=== PATIENT | male | born 1965 | race Caucasian/White ===

== ENCOUNTER 2019-08-17 12:09 | Inpatient (IN) | payer OTHER ==
[~2019-08-17] VITALS: Ht 167.6 cm; Wt 81.8 kg
[2019-08-17 11:30] VITALS: BP 147/81
--- NOTE | 2019-08-17 11:45 | NUR ---
Infomed consent obtained from patient by CONCEPCION BELCHER for elective intubation. Patient intubated with 9 Lao endotracheal tube orally X 1 attempts. Patient sedated with ETOMIDATE AND SUCCINYLCHOLINE Respiratory therapy at bedside. Crash cart with emergency drugs available. Endotracheal tube inflated with 10cc's. Lungs auscultated for equality of breath sounds. Tube secured with Tube tamer at 23cm's. at level of LIP. Patient tolerated procedure WELL. Portable chest X-ray obtained and reviewed for tube placement. Patient connected to ventilator CMV mode, 400 tidal volume, 100 FIO2, 8 PEEP, and 0 pressure support. JIMMIE FARLEY
--- NOTE | 2019-08-17 12:33 | NUR ---
The assessment has been completed. FREDERICK RIGGINS Time: 1130 A year old MALE admitted to 5E under services of DOM MONSON DO, Pt. arrived via bed from ER. Chief complaint: S/S CONCERNING COVID-19. FREDERICK RIGGINS
--- NOTE | 2019-08-17 12:34 | NUR ---
DECREASED FIO2 TO 80%-+14
[2019-08-17] MEDS ORDERED: PROAIR HFA8.5 GM INH (12:54)
[2019-08-17 12:55] LABS: BILIRUBIN NEGATIVE (NEGATIVE); CLARITY SL CLOUDY (CLEAR); COLOR ORANGE (YELLOW); GLUCOSE NEGATIVE (NEGATIVE); KETONE NEGATIVE (NEGATIVE)
[2019-08-17] MEDS ORDERED: CLARITHROMYCIN500 MG PO (12:55)
[2019-08-17 12:56] LABS: BLOOD 3+ (NEGATIVE); LEUKO ESTERASE NEGATIVE (NEGATIVE); NITRITE NEGATIVE (NEGATIVE)
[2019-08-17] MEDS ORDERED: IBU800 M1 PO (12:56)
[2019-08-17] MEDS ORDERED: OXTELLAR XR300 M1 PO (12:58)
[2019-08-17 13:05] LABS: BACTERIA 2+; MUCOUS 1+; RBC 16-20 rbc/hpf (0-2)
[2019-08-17 13:17] LABS: ABG BASE EXCESS -2.4 mmol/L (-2.0-2.0)
[2019-08-17 13:19] LABS: ARTERIAL BLOOD GAS PH 7.164 (7.35-7.45)
[2019-08-17 13:31] LABS: BASO % 0.2 % (0.0-1.0); HEMATOCRIT 38.8 % (42.0-52.0); LYMPH # 0.9 10*3/uL (1.3-4.4); LYMPH % 6.6 % (27.0-41.0); MEAN CELL VOLUME 84.3 fl (80.0-94.0); MEAN CORPUSCULAR HGB 29.8 pg (27.0-31.0); MEAN CORPUSCULAR HGB CONC 35.3 g/dl (33.0-37.0); MEAN PLATELET VOLUME 12.6 fl (9.6-12.3); MONO # 0.8 10*3/uL (0.1-1.0); MONO % 6.2 % (3.0-9.0); NEUT # 11.5 10*3/uL (2.3-7.9); NEUT % 86.4 % (47.0-73.0); PLATELET COUNT AUTOMATED 178 10*3/uL (130-400); RED CELL DISTRI WIDTH 12.2 % (0-14.5); WHITE BLOOD COUNT 13.3 10*3/uL (4.8-10.8)
[2019-08-17 13:41] LABS: ALBUMIN 2.9 gm/dl (3.1-4.5); ALKALINE PHOSPHATASE 54 U/L (45-117); BUN 21 mg/dl (7-24); CHLORIDE 94 mmol/L (98-107); CREATININE 1.09 mg/dL (0.70-1.30); LDH 416 U/L (87-241); POTASSIUM 3.4 mmol/L (3.5-5.1); SGOT/AST 82 IU/L (3-35); SGPT/ALT 60 U/L (12-78); SODIUM 128 mmol/L (136-145); TOTAL PROTEIN 7.3 gm/dL (6.4-8.2)
[2019-08-17 13:42] LABS: TROPONIN I < 0.015 ng/ml (<0.045)
--- NOTE | 2019-08-17 13:48 | NUR ---
DR. SHERWOOD NOTIFIED OF CONSULT AND ABG RESULTS
--- NOTE | 2019-08-17 13:59 | NUR ---
PER DR SHERWOOD RR INCREASED TO 26.
[2019-08-17 14:00] VITALS: BP 147/66
[2019-08-17 15:51] LABS: ABG BASE EXCESS -0.4 mmol/L (-2.0-2.0); ARTERIAL BLOOD GAS PH 7.359 (7.35-7.45)
[2019-08-17 16:00] VITALS: BP 93/65
[2019-08-17 17:01] LABS: ABG BASE EXCESS 0.3 mmol/L (-2.0-2.0); ARTERIAL BLOOD GAS PH 7.41 (7.35-7.45)
[2019-08-17 18:00] VITALS: BP 109/78
[2019-08-17 20:00] VITALS: BP 96/65
--- NOTE | 2019-08-17 20:00 | NUR ---
PT IS RESTING QUIETLY AT THIS TIME.
[2019-08-17 21:55] LABS: CLARITY TURBID (CLEAR); COLOR YELLOW (YELLOW)
[2019-08-17 21:56] LABS: BILIRUBIN NEGATIVE (NEGATIVE); BLOOD 3+ (NEGATIVE); GLUCOSE NEGATIVE (NEGATIVE); KETONE NEGATIVE (NEGATIVE); LEUKO ESTERASE NEGATIVE (NEGATIVE); NITRITE NEGATIVE (NEGATIVE); UROBILINOGEN 0.2 E.U./dl (0.2-1.0)
[2019-08-17 22:00] VITALS: BP 92/68
[2019-08-17 22:05] LABS: BACTERIA 4+
[2019-08-18] VITALS (12 sets, daily range): BP systolic 96–118; BP diastolic 56–87
[2019-08-18 06:16] LABS: BASO % 0.3 % (0.0-1.0); EOS % 0.4 % (1.0-4.0); HEMATOCRIT 34.8 % (42.0-52.0); LYMPH # 0.9 10*3/uL (1.3-4.4); LYMPH % 12.1 % (27.0-41.0); MEAN CELL VOLUME 84.5 fl (80.0-94.0); MEAN CORPUSCULAR HGB 30.6 pg (27.0-31.0); MEAN CORPUSCULAR HGB CONC 36.2 g/dl (33.0-37.0); MEAN PLATELET VOLUME 11.7 fl (9.6-12.3); MONO # 0.7 10*3/uL (0.1-1.0); MONO % 9.3 % (3.0-9.0); NEUT # 5.5 10*3/uL (2.3-7.9); NEUT % 77.2 % (47.0-73.0); PLATELET COUNT AUTOMATED 147 10*3/uL (130-400); RED BLOOD COUNT 4.12 10*6/uL (4.50-5.90); RED CELL DISTRI WIDTH 12.5 % (0-14.5); WHITE BLOOD COUNT 7.2 10*3/uL (4.8-10.8)
[2019-08-18 06:30] LABS: ALBUMIN 2.5 gm/dl (3.1-4.5); ALKALINE PHOSPHATASE 54 U/L (45-117); BUN 20 mg/dl (7-24); CHLORIDE 100 mmol/L (98-107); PHOSPHOROUS 2.2 mg/dL (2.5-4.9); POTASSIUM 3.9 mmol/L (3.5-5.1); SGOT/AST 51 IU/L (3-35); SGPT/ALT 60 U/L (12-78); SODIUM 134 mmol/L (136-145); TOTAL PROTEIN 6.7 gm/dL (6.4-8.2)
[2019-08-18 06:36] LABS: THYROID STIM HORMONE (HS) 0.223 uIU/ml (0.358-4.75)
[2019-08-18 07:27] LABS: ARTERIAL BLOOD GAS PH 7.418 (7.35-7.45)
--- NOTE | 2019-08-18 07:42 | NUR ---
Shift chart check completed.
[2019-08-18 14:32] LABS: ABG BASE EXCESS 1.5 mmol/L (-2.0-2.0); ARTERIAL BLOOD GAS PH 7.287 (7.35-7.45)
--- NOTE | 2019-08-18 18:58 | NUR ---
DR. SHERWOOD NOTIFIED OF ABG RESULTS
[2019-08-19] VITALS (68 sets, daily range): BP systolic 95–145; BP diastolic 43–87
--- NOTE | 2019-08-19 02:00 | NUR ---
MEDICATED WITH IV ROCURONIUM ORDERED FOR INCREASED RESPIRATIONS/BREATHING OVER VENT.
--- NOTE | 2019-08-19 05:47 | NUR ---
24 HR chart check completed.
[2019-08-19 05:58] LABS: ALBUMIN 2.4 gm/dl (3.1-4.5); ALKALINE PHOSPHATASE 67 U/L (45-117); BUN 24 mg/dl (7-24); CHLORIDE 103 mmol/L (98-107); CREATININE 0.84 mg/dL (0.70-1.30); PHOSPHOROUS 2.4 mg/dL (2.5-4.9); POTASSIUM 4.3 mmol/L (3.5-5.1); SGOT/AST 42 IU/L (3-35); SGPT/ALT 66 U/L (12-78); SODIUM 137 mmol/L (136-145); TOTAL PROTEIN 6.8 gm/dL (6.4-8.2); TRIGLYCERIDES 176 mg/dl (<150)
[2019-08-19 07:01] LABS: HEMATOCRIT 36.5 % (42.0-52.0); RED BLOOD COUNT 4.13 10*6/uL (4.50-5.90); RED CELL DISTRI WIDTH 12.9 % (0-14.5); WHITE BLOOD COUNT 5.6 10*3/uL (4.8-10.8)
[2019-08-19 07:08] LABS: MEAN CELL VOLUME 88.4 fl (80.0-94.0); PLATELET COUNT AUTOMATED 196 10*3/uL (130-400)
--- NOTE | 2019-08-19 08:00 | NUR ---
assessment done - [facility] [place] SECURE & PATENT. DIPRIVAN & FENTANYL INFUSING. MEAGHAN PATENT FOR GREEN URINE...OGT PLACEMENT WITH AIR BOLUS THEN FEEDING AT 20cc/HR 0840 ROCURIUM GIVEN FOR CHANGES IN VENTILATOR WAVEFORMS..
[2019-08-19 08:08] LABS: ABG BASE EXCESS 3.4 mmol/L (-2.0-2.0); ARTERIAL BLOOD GAS PH 7.374 (7.35-7.45)
[2019-08-19 08:40] LABS: BURR CELLS FEW; PLATELET SUFFICIENCY NORMAL (NORMAL); POLYCHROMASIA SLIGHT; TOTAL CELLS COUNTED 100 #CELLS; TOXIC GRANULATION SLIGHT
--- NOTE | 2019-08-19 13:00 | NUR ---
ROCURIUM GIVEN FOR INCREASED TITAL VOLUMES AND RESTLESSNESS. DIPRIVAN AND FENTANYL CONTINUING... 1310 MEDS EFFECTIVE
[2019-08-19 13:53] LABS: ABG BASE EXCESS 3.3 mmol/L (-2.0-2.0); ARTERIAL BLOOD GAS PH 7.328 (7.35-7.45)
--- NOTE | 2019-08-19 15:28 | NUR ---
ROCURIUM GIVEN AFTER RT RADIAL ART LINE PLACED BY ANESTHESIA. PREPARING FOR PRONATION...
--- NOTE | 2019-08-19 18:30 | NUR ---
UNABLE TO TURN PATIENT OTHER PATIENTS REQUIRING EMERGENCY TREATMENTS/ASSESSMENTS
--- NOTE | 2019-08-19 20:19 | NUR ---
PT. REMAINS SEDATED. HEP LOCK IN SANGITA ASYMPT, ART IN LEFT RADIAL ALSO ASYMPT. RIJ MLC HAS DIPROVAN AT 50 MICS AND FENTANYL AT 15MICS INFUSING VIA PROX PORT. LUNGS DIMINISHED BILAT, PULSE OX 95% ON 45% FIO2. ABDOMEN SOFTLY DISTENDED AND NORMO. EDEMA VS OBESITY. SCD'S BILAT. HARDING DRAINING A CLEAR GREEN URINE. PT. GIVEN ORAL MOUTH CARE AND SUCTIONED FOR SCANT AMT OF WHITE MUCOUS NOTED. OGT HAS TUBE FEEDING INFUSING, NO RESIDUAL NOTED. SHAKLES TO ANKLES NOTED. SOFTS WRIST RESTRAINTS BILAT TO PREVENT ACCIDENTAL SELF-EXTUBATION. BENJAMIN VILCHIS RN
--- NOTE | 2019-08-19 22:50 | NUR ---
PT. GIVEN ZEMURON AT 2151 FOR RESTLESSNESS. IMMEDIATELY EFFECTIVE. BENJAMIN VILCHIS RN
[2019-08-20] VITALS (92 sets, daily range): BP systolic 89–173; BP diastolic 51–102
--- NOTE | 2019-08-20 02:50 | NUR ---
PT. GIVEN ZEMURON ORDERED FOR RESTLESSNESS AT 0235, IMMEDIATELY EFFECTIVE. BENJAMIN VILCHIS RN
--- NOTE | 2019-08-20 04:01 | NUR ---
No changes were made during the night to the ventilator. Plats were every 4 hours as follows 1999 0000 - 25 0400 -
[2019-08-20 04:50] LABS: ABG BASE EXCESS 6.2 mmol/L (-2.0-2.0); ARTERIAL BLOOD GAS PH 7.356 (7.35-7.45)
[2019-08-20 05:20] LABS: ALBUMIN 2.4 gm/dl (3.1-4.5); ALKALINE PHOSPHATASE 63 U/L (45-117); BUN 32 mg/dl (7-24); CHLORIDE 100 mmol/L (98-107); CREATININE 0.99 mg/dL (0.70-1.30); PHOSPHOROUS 3.6 mg/dL (2.5-4.9); POTASSIUM 4.8 mmol/L (3.5-5.1); SGOT/AST 35 IU/L (3-35); SGPT/ALT 62 U/L (12-78); SODIUM 138 mmol/L (136-145); TOTAL PROTEIN 6.8 gm/dL (6.4-8.2); TRIGLYCERIDES 210 mg/dl (<150)
[2019-08-20 06:20] LABS: HEMATOCRIT 36.3 % (42.0-52.0); MEAN CELL VOLUME 89.9 fl (80.0-94.0); MEAN CORPUSCULAR HGB 30.4 pg (27.0-31.0); MEAN CORPUSCULAR HGB CONC 33.9 g/dl (33.0-37.0); MEAN PLATELET VOLUME 11.8 fl (9.6-12.3); RED BLOOD COUNT 4.04 10*6/uL (4.50-5.90); RED CELL DISTRI WIDTH 12.9 % (0-14.5); WHITE BLOOD COUNT 12.5 10*3/uL (4.8-10.8)
[2019-08-20 06:22] LABS: PLATELET COUNT AUTOMATED 289 10*3/uL (130-400)
[2019-08-20 07:02] LABS: ATYPICAL LYMPHS 1 % (0-0); PLATELET SUFFICIENCY NORMAL (NORMAL); TOTAL CELLS COUNTED 100 #CELLS
[2019-08-20 07:03] LABS: POLYCHROMASIA SLIGHT; TOXIC GRANULATION SLIGHT
--- NOTE | 2019-08-20 08:00 | NUR ---
AM ASSESSMENT DONE. ETT SECURE AT LIP..SEE VENT SCREEN. OGT PLACEMENT CHECK WITH AIR BOLUS THEN IRRIGATED WITH FREE WATER..RIJ-MLC SECURE & PATENT WITH IV DIPRIVAN & FENTANYL INFUSING. OTHER PORTS PATENT. LEFT ART LINE PATENT, ZERO'D & CALIBRATED.. HARDING PATENT FOR CLEAR GREEN URINE. SOFT WRIST RESTRAINTS. PRION CUFFS TO BILAT ANKLES & ZIP STRIP TO RT WRIST BUT NOT SECURED TO BED
--- NOTE | 2019-08-20 09:00 | NUR ---
ROCURIUM GIVEN FOR ELVATED TIDAL VOLUMES AND BUCKING VENT.. 0905 MED EFFECTIVE
--- NOTE | 2019-08-20 11:00 | NUR ---
PATIENT PLACED IN PRONE POSITION WITH RESP THERAPY, ANESTHESIA, & NURSING STAFF PRESENT. ETT REMAINED INTACT & IN CORRECT POSITION DURING CHANGE IN POSITION...PT TOLERATED WELL. ALL LINES REMAIN PATENT.. DIPRIVAN AT 50mcg, FENTANYL @ 15mcg AND TUBE FEEDING BEING HELD CURRENTLY...
[2019-08-20 11:06] LABS: ABG BASE EXCESS 8.4 mmol/L (-2.0-2.0); ARTERIAL BLOOD GAS PH 7.37 (7.35-7.45)
--- NOTE | 2019-08-20 12:00 | NUR ---
DR SHERWOOD ROUNDED AND CASE DISCUSSED IN DEPTH WITH RESP THERAPY PRESENT...ORDERS RECEIVED & PATIENT EXAMINED PER DR SHERWOOD CXR IS SHOWING IMPROVEMENT
--- NOTE | 2019-08-20 16:00 | NUR ---
ASSESSMENT DONE - PT REMAINS IN PRONE POSITION WITH BED IN REVERSE TRENDELENBURG..HEAD FACING DOOR NOW & RIGHT ARM ELEVATED
--- NOTE | 2019-08-20 17:00 | NUR ---
STAFF RETURNED TO ROOM AND PT RETURNED TO BACK LAYING POSITION...PT TOLERATEDE WELL AND ALL LINES PATENT.. GREEN URINE
--- NOTE | 2019-08-20 19:55 | NUR ---
24 HR chart check completed.
--- NOTE | 2019-08-20 20:00 | NUR ---
BATH DONE COMPLETE ... ASSESSMENT DONE. DIPRIVAN & FENTANYL INFUSING
--- NOTE | 2019-08-20 22:46 | NUR ---
MEDICATED WITH IV ROCURONIUM ORDERED FOR AGITATION/BREATHING OVER THE VENT.
[2019-08-21] VITALS (69 sets, daily range): BP systolic 78–165; BP diastolic 49–96
--- NOTE | 2019-08-21 02:07 | NUR ---
MEDICATED WITH IV ROCURONIUM ORDERED FOR BREATHING OVER THE VENT.
[2019-08-21 02:27] LABS: ABG BASE EXCESS 10.4 mmol/L (-2.0-2.0); ARTERIAL BLOOD GAS PH 7.453 (7.35-7.45)
[2019-08-21 05:08] LABS: ALBUMIN 2.4 gm/dl (3.1-4.5); ALKALINE PHOSPHATASE 53 U/L (45-117); BUN 42 mg/dl (7-24); CHLORIDE 102 mmol/L (98-107); CREATININE 0.97 mg/dL (0.70-1.30); PHOSPHOROUS 3.5 mg/dL (2.5-4.9); POTASSIUM 4.6 mmol/L (3.5-5.1); SGOT/AST 64 IU/L (3-35); SGPT/ALT 75 U/L (12-78); SODIUM 141 mmol/L (136-145); TOTAL PROTEIN 6.1 gm/dL (6.4-8.2); TRIGLYCERIDES 273 mg/dl (<150)
[2019-08-21 06:08] LABS: HEMATOCRIT 35.1 % (42.0-52.0); MEAN CELL VOLUME 91.2 fl (80.0-94.0); MEAN CORPUSCULAR HGB 29.9 pg (27.0-31.0); MEAN CORPUSCULAR HGB CONC 32.8 g/dl (33.0-37.0); MEAN PLATELET VOLUME 11.4 fl (9.6-12.3); PLATELET COUNT AUTOMATED 342 10*3/uL (130-400); RED BLOOD COUNT 3.85 10*6/uL (4.50-5.90); RED CELL DISTRI WIDTH 12.8 % (0-14.5); WHITE BLOOD COUNT 8.9 10*3/uL (4.8-10.8)
[2019-08-21 06:20] LABS: ABG BASE EXCESS 10.9 mmol/L (-2.0-2.0); ARTERIAL BLOOD GAS PH 7.427 (7.35-7.45)
[2019-08-21 07:18] LABS: ATYPICAL LYMPHS 1 % (0-0); PLATELET SUFFICIENCY NORMAL (NORMAL); TOTAL CELLS COUNTED 100 #CELLS
--- NOTE | 2019-08-21 08:10 | NUR ---
SEDATED ON DIPRIVAN GTT AT 5O SAVANNA'S VIA RIJ MLC. ART LINE INTACT TO LEFT RADIAL AND ZEROED. LUNGS CLEAR BILATERALLY. NO EDEMA NOTED. HARDING DRAININGDARK BROWN/GREEN URINE. SCD'S INTACT TO BILATERAL LEGS. FENTANYL GTT INFUSING AT 15 SAVANNA'S. BP 82/67
--- NOTE | 2019-08-21 14:15 | NUR ---
MEDICATED WITH ROCURONIUM ORDERED FOR RESTLESSNESS.
[2019-08-21 14:47] LABS: ABG BASE EXCESS 11.6 mmol/L (-2.0-2.0); ARTERIAL BLOOD GAS PH 7.44 (7.35-7.45)
--- NOTE | 2019-08-21 16:59 | NUR ---
PATIENT GIVEN ROCC PATIENT MOVING BECOMING AGITATED PATIENT HAD LG LIQUID BM PATIENT TURNED CURRENTLY ON BACK.
[2019-08-22] VITALS (25 sets, daily range): BP systolic 102–185; BP diastolic 62–127
[2019-08-22 01:05] LABS: ABG BASE EXCESS 11.1 mmol/L (-2.0-2.0); ARTERIAL BLOOD GAS PH 7.418 (7.35-7.45)
[2019-08-22 03:53] LABS: HEMATOCRIT 41.1 % (42.0-52.0); MEAN CELL VOLUME 91.5 fl (80.0-94.0); MEAN CORPUSCULAR HGB 29.4 pg (27.0-31.0); MEAN CORPUSCULAR HGB CONC 32.1 g/dl (33.0-37.0); MEAN PLATELET VOLUME 10.3 fl (9.6-12.3); PLATELET COUNT AUTOMATED 386 10*3/uL (130-400); RED BLOOD COUNT 4.49 10*6/uL (4.50-5.90); RED CELL DISTRI WIDTH 12.6 % (0-14.5); WHITE BLOOD COUNT 10.4 10*3/uL (4.8-10.8)
[2019-08-22 04:10] LABS: ALBUMIN 2.7 gm/dl (3.1-4.5); ALKALINE PHOSPHATASE 61 U/L (45-117); BUN 41 mg/dl (7-24); CHLORIDE 100 mmol/L (98-107); CREATININE 0.92 mg/dL (0.70-1.30); SGOT/AST 62 IU/L (3-35); SGPT/ALT 88 U/L (12-78); SODIUM 143 mmol/L (136-145); TOTAL PROTEIN 6.9 gm/dL (6.4-8.2); TRIGLYCERIDES 352 mg/dl (<150)
[2019-08-22 04:53] LABS: PLATELET SUFFICIENCY NORMAL (NORMAL); TOTAL CELLS COUNTED 100 #CELLS
[2019-08-22 06:13] LABS: ABG BASE EXCESS 10.9 mmol/L (-2.0-2.0); ARTERIAL BLOOD GAS PH 7.4 (7.35-7.45)
--- NOTE | 2019-08-22 12:15 | NUR ---
PT WAS PRONED. PT IS TO HAVE HEAD SWITCHED TO OTHER SIDE AT 1430.
--- NOTE | 2019-08-22 12:30 | NUR ---
PRONING DONE ORDERED BY DR. SHERWOOD. TOLERATED FAIR. CXR ORDERED TO CONFIRM PLACEMENT
--- NOTE | 2019-08-22 14:20 | NUR ---
MEDICATED WITH ZEMURON IV PRIOR TO PRONING.
--- NOTE | 2019-08-22 15:00 | NUR ---
ZEMURON EFFECTIVE FOR SEDATION
--- NOTE | 2019-08-22 16:30 | NUR ---
PT REMAINS IN PRONE POSITION. HEAD POSITIONED TO THE LEFT AT THIS TIME.
--- NOTE | 2019-08-22 18:30 | NUR ---
PT REMAINS PRONED. HEAD POSITIONED TO THE RIGHT AT THIS TIME.
--- NOTE | 2019-08-22 19:30 | NUR ---
Pts modified swimming position and head turn done. Pts head to the right. Left arm up. Wrist restraints re applied. No comps.
--- NOTE | 2019-08-22 21:30 | NUR ---
Pts modified swimming position and head turn changed. Pt looking to the left in the prone position with right arm up. Wrist restraints reapplied. No comps.
[2019-08-22 22:06] LABS: ABG BASE EXCESS 7.5 mmol/L (-2.0-2.0); ARTERIAL BLOOD GAS PH 7.317 (7.35-7.45)
--- NOTE | 2019-08-22 22:40 | NUR ---
Pt was having trouble holding a SpO2 >90%. Pt was sitting at 85% with recruitment maneuvers. ABG pulled. PH 7.31 CO2 73 O2 59 HCO3 36 Changes were made as follows Increased rate to 30. FIO2 to 50%. Peep 16+ Pts SpO2 holding at 92%. Will get ABGs's in 2 hours.
--- NOTE | 2019-08-22 23:46 | NUR ---
INCREASED PATIENTS FENTYNAL DUE TO AGITATION AND RESTLESSNESS. PATIENT MOVING IN BED HEART RATE IS UP TO 113 INCREASED FENTYNAL TO 100MCQS .
[2019-08-23] VITALS (24 sets, daily range): BP systolic 97–187; BP diastolic 66–122
--- NOTE | 2019-08-23 | NUR ---
PATIENT HEART RATE DOWN A LITTLE BIT PATIENT RESTING MORE COMFORTABLE AT THIS TIME PATIENTS BP STABLE.
[2019-08-23 02:08] LABS: ABG BASE EXCESS 8.7 mmol/L (-2.0-2.0); ARTERIAL BLOOD GAS PH 7.372 (7.35-7.45)
[2019-08-23 05:04] LABS: HEP B CORE AB, IGM Negative (Negative); HEPATITIS B SURFACE AG Negative (Negative); HEPATITIS C VIRUS ANTIBODY <0.1 s/co (0.0-0.9)
[2019-08-23 05:26] LABS: ALBUMIN 2.8 gm/dl (3.1-4.5); ALKALINE PHOSPHATASE 57 U/L (45-117); BUN 44 mg/dl (7-24); CHLORIDE 106 mmol/L (98-107); CREATININE 0.73 mg/dL (0.70-1.30); PHOSPHOROUS 2.2 mg/dL (2.5-4.9); POTASSIUM 4.9 mmol/L (3.5-5.1); SGOT/AST 63 IU/L (3-35); SGPT/ALT 99 U/L (12-78); SODIUM 144 mmol/L (136-145); TOTAL PROTEIN 6.7 gm/dL (6.4-8.2); TRIGLYCERIDES 363 mg/dl (<150)
--- NOTE | 2019-08-23 05:59 | NUR ---
PATIENTS HEART RATE IN 120'S-130'S CALLED KINNEAR ORDERS FOR LOPRESSOR GIVEN.
[2019-08-23 06:01] LABS: HEMATOCRIT 42.1 % (42.0-52.0); MEAN CORPUSCULAR HGB 30.6 pg (27.0-31.0); MEAN CORPUSCULAR HGB CONC 32.5 g/dl (33.0-37.0); MEAN PLATELET VOLUME 10.7 fl (9.6-12.3); NUCLEATED RED BLOOD CELL 0.3 % (0.0-0.0); PLATELET COUNT AUTOMATED 300 10*3/uL (130-400); RED BLOOD COUNT 4.48 10*6/uL (4.50-5.90); RED CELL DISTRI WIDTH 12.8 % (0-14.5)
--- NOTE | 2019-08-23 06:01 | NUR ---
PATIENTS HEART RATE CURRENTLY 92 AFTER LOPRESSOR GIVEN.
[2019-08-23 06:06] LABS: ABG BASE EXCESS 6.9 mmol/L (-2.0-2.0); ARTERIAL BLOOD GAS PH 7.339 (7.35-7.45)
[2019-08-23 07:04] LABS: TOTAL CELLS COUNTED 100 #CELLS
[2019-08-23 07:05] LABS: PLATELET SUFFICIENCY NORMAL (NORMAL)
--- NOTE | 2019-08-23 08:00 | NUR ---
SEDATED ON VENT. DIPRIVAN GTT INFUSING AT 45 SAVANNA'S AND FENTANYL GTT INFUSING AT 100MIC'S. OGT INFUSING 2 RAMESH AT 20CC/HR. LUNGS CLEAR BILATERALLY WITH A FEW SCATTERED RHONCHI. HARDING DRAINING CLEAR YELLOW URINE. ART LINE INTACT TO LEFT RADIAL. RIJ MLC INTACT WITH DRESSING DRY AND INTACT. AFEBRILE.
--- NOTE | 2019-08-23 09:00 | NUR ---
DIPRIVAN GTT TITRATED DOWN TO 30 SAVANNA'A AND FENTANYL GTT TITRATED DOWN TO 75MIC'S AND THEN IN 30 MIN'S GTT WAS TITRATED DOWN TO 50 SAVANNA'S,
--- NOTE | 2019-08-23 14:00 | NUR ---
PRONED BY 6 STAFF. TOLERATED WELL.
--- NOTE | 2019-08-23 19:00 | NUR ---
MEDICATED WITH ZEMURON ORDERED FOR RESTLESSNESS AND INCREASED HEART RATE
--- NOTE | 2019-08-23 20:23 | NUR ---
SEE PI SCREEN FOR ASSESSMENT FINDINGS. PT ADEQUATELY SEDATED. MEW ART LINE BAG UP. CONTINUOUS RECTAL PROBE AT 99.9. QT 0.36. VSS. PROPOFOL 50MCG, FENTANYL 50MCG.
--- NOTE | 2019-08-23 21:11 | NUR ---
PT WAS GIVEN ROCURONIUM AT 2100 FOR MOVING HEAD/AGITATION...EFFECTIVE.
--- NOTE | 2019-08-23 22:06 | NUR ---
PT'S HEAD TURNED TO LT. ARMS REPOSITIONED.
--- NOTE | 2019-08-23 22:19 | NUR ---
PEEP WAS DECREASED BY RESP DEPT TO 16.
[2019-08-24] VITALS (25 sets, daily range): BP systolic 83–168; BP diastolic 58–104
--- NOTE | 2019-08-24 00:17 | NUR ---
PT'S PRONE HEAD PILLOW REPLACED AND PT'S HEAD AND ARMS REPOSITIONED. ROCURONIUM AT 2300 WAS EFFECTIVE FOR AGITATION. ART LINE HAD BECAME LOOSE AT HUB AND STARTED TO BLEED. SITE CLEANSED AND NEW DRESSING APPLIED.
--- NOTE | 2019-08-24 02:09 | NUR ---
NORCURONIUM GIVEN FOR PT MOVEMENT/RESTLESSNESS AT 0200 WITH HEAD TURNING AND ARM REPOSITIONING EFFECTIVE.
--- NOTE | 2019-08-24 03:15 | NUR ---
SPO2 99%. DECREASED O2 TO 45%. WILL CONTINUE TO MONITOR
--- NOTE | 2019-08-24 04:21 | NUR ---
TOLERATING TITRATION OF FIO2 TO 45% BY RESP DEPT. VSS.
--- NOTE | 2019-08-24 05:20 | NUR ---
NORCURON EFFECTIVE FOR RESTLESSNESS/MOVING ABOUT. BODY RELAXED.
[2019-08-24 05:25] LABS: ABG BASE EXCESS 6.4 mmol/L (-2.0-2.0); ARTERIAL BLOOD GAS PH 7.383 (7.35-7.45)
[2019-08-24 05:53] LABS: ALKALINE PHOSPHATASE 62 U/L (45-117); BUN 43 mg/dl (7-24); CHLORIDE 109 mmol/L (98-107); CREATININE 0.77 mg/dL (0.70-1.30); PHOSPHOROUS 1.7 mg/dL (2.5-4.9); POTASSIUM 4.4 mmol/L (3.5-5.1); SGOT/AST 64 IU/L (3-35); SGPT/ALT 103 U/L (12-78); SODIUM 145 mmol/L (136-145); TOTAL PROTEIN 6.8 gm/dL (6.4-8.2); TRIGLYCERIDES 394 mg/dl (<150)
--- NOTE | 2019-08-24 06:23 | NUR ---
PT CHANGED TO SUPINE POSITION WITH NURSE AMMUNITION STORAGE SUPERINTENDENT, RT, AND 4 OTHER STAFF MEMBERS. DONE WITHOUT DIFFICULTY. COMPLETE BATH AND BED LINEN CHANGE DONE.
[2019-08-24 06:31] LABS: HEMATOCRIT 43.6 % (42.0-52.0); MEAN CELL VOLUME 93.8 fl (80.0-94.0); MEAN CORPUSCULAR HGB 29.9 pg (27.0-31.0); MEAN CORPUSCULAR HGB CONC 31.9 g/dl (33.0-37.0); MEAN PLATELET VOLUME 10.5 fl (9.6-12.3); NUCLEATED RED BLOOD CELL 0.2 % (0.0-0.0); PLATELET COUNT AUTOMATED 360 10*3/uL (130-400); RED BLOOD COUNT 4.65 10*6/uL (4.50-5.90); RED CELL DISTRI WIDTH 12.9 % (0-14.5); WHITE BLOOD COUNT 9.5 10*3/uL (4.8-10.8)
[2019-08-24 07:07] LABS: PLATELET SUFFICIENCY NORMAL (NORMAL); TOTAL CELLS COUNTED 100 #CELLS
--- NOTE | 2019-08-24 08:00 | NUR ---
SEDATED ON VENT. REMAINS IN SOFT WRIST RESTRAINTS BILATERALLY. NSR ON HEART MONITOR. HEART RATE 90'S. BP 108/70. RECTAL TEMP 99. HARDING DRAINING CLEAR GREEN URINE. SUCTIONED FOR MODERATE AMOUNT THICK CREAM SECRETIONS. REMAINS ON DIPRIVAN GTT AT 50 SAVANNA'S AND FENTANYL GTT INFUSING AT 50 SAVANNA'S.
--- NOTE | 2019-08-24 09:00 | NUR ---
MEDICATED WITH ZEMURON ORDERED FOR RESTLESSNESS.
--- NOTE | 2019-08-24 10:00 | NUR ---
DR. SHERWOOD HERE TO SEE PATIENT
--- NOTE | 2019-08-24 17:29 | NUR ---
SPOKE WITH DR. SHERWOOD REGARDING HEART RATE 130'S AND BP 170/100. ORDERS RECEIVED TO RESTART DIPRIVAN AND CONTINUE WITH FENTANYL AND KETAMINE GTTS.
--- NOTE | 2019-08-24 19:23 | NUR ---
13:15 FIO2 DECREASED TO 35% SPO2 100%
--- NOTE | 2019-08-24 19:24 | NUR ---
16:10 FIO2 DECREASED TO 35% SPO2 96%
[2019-08-24 19:56] LABS: ABG BASE EXCESS 8.5 mmol/L (-2.0-2.0); ARTERIAL BLOOD GAS PH 7.41 (7.35-7.45)
--- NOTE | 2019-08-24 23:05 | NUR ---
TEMP 100.6 PER CONTINUOUS RECTAL PROBE. HR UPPER 130'S. PT HAD BEEN MOVING AROUND AND WAS GIVEN ROCURONIUM AT 2240 AND THAT WAS EFFECTIVE...BUT HR UPPER 130'S. MEDICATED WITH TYLENOL FOR FEVER.
[2019-08-25] VITALS (26 sets, daily range): BP systolic 93–172; BP diastolic 61–97
[2019-08-25 00:04] LABS: TB1 Ag VALUE 0.07 IU/mL (.)
--- NOTE | 2019-08-25 02:14 | NUR ---
RECURONIUM FOR PT'S PULLING UP AT RESTRAINTS EFFECTIVE....BODY RELAXED. TEMP DOWN TO 100.2 AND HR DOWN TO 120'S.
[2019-08-25 05:08] LABS: ALKALINE PHOSPHATASE 60 U/L (45-117); BUN 43 mg/dl (7-24); CHLORIDE 109 mmol/L (98-107); CREATININE 0.93 mg/dL (0.70-1.30); PHOSPHOROUS 1.9 mg/dL (2.5-4.9); SGOT/AST 72 IU/L (3-35); SGPT/ALT 109 U/L (12-78); SODIUM 148 mmol/L (136-145); TOTAL PROTEIN 6.5 gm/dL (6.4-8.2)
--- NOTE | 2019-08-25 05:49 | NUR ---
ROCURONIUM GIVEN AT 0530 FOR PT PULLING UP AT RESTRAINTS AND SHAKING HEAD SIDE TO SIDE, LIFTING SHOULDERS. EFFECTIVE. BODY RELAXED.
[2019-08-25 05:54] LABS: ARTERIAL BLOOD GAS PH 7.423 (7.35-7.45)
--- NOTE | 2019-08-25 06:02 | NUR ---
PTS PF RATIO IS CURRENTLY 294
[2019-08-25 06:12] LABS: HEMATOCRIT 42.8 % (42.0-52.0); MEAN CELL VOLUME 94.9 fl (80.0-94.0); MEAN CORPUSCULAR HGB 30.2 pg (27.0-31.0); MEAN CORPUSCULAR HGB CONC 31.8 g/dl (33.0-37.0); MEAN PLATELET VOLUME 10.7 fl (9.6-12.3); PLATELET COUNT AUTOMATED 340 10*3/uL (130-400); RED BLOOD COUNT 4.51 10*6/uL (4.50-5.90); WHITE BLOOD COUNT 10.2 10*3/uL (4.8-10.8)
--- NOTE | 2019-08-25 06:28 | NUR ---
TUBE FEEDINGS TO 40CC/HR. HOB ELEVATED. HEELS OFF OF BED. ARMS POSITIONED AND PROPPED WITH PILLOWS.
[2019-08-25 07:31] LABS: PLATELET SUFFICIENCY NORMAL (NORMAL); POLYCHROMASIA SLIGHT; TOTAL CELLS COUNTED 100 #CELLS
--- NOTE | 2019-08-25 09:07 | NUR ---
AM ASSESSMENT DONE - PATIENT ARUSED WHEN MEDICATIONS STOPPED FOR SEDATION VACATION BUT WAS UNABLE TO FOLLOW COMMANDS & DID NOT SHAKE HEAD APPROPRIATELY..DIPRIVAN AT 35mcg / FENTANYL @ 75mcg / KETAMINE AT 6mcg VIA RIJ-MLC...SANGITA IV REMOVED AND CLEAN DRESSING APPLIED. OGT PLACEMENT CHECKED WITH AIR BOLUS THEN IRRIGATED WITH FREE WATER. NEUTRAPHOS GIVEN EARLY FOR LOW LEVEL & WILL DISCUSS W/ DR SHERWOOD..TUBE FEEDING AT 40 CC/HR..LEFT RADIAL ART LINE ZERO'D & CALIBRATED WITH GOOD BLOOD RETURN...HARDING DRAINING LIGHT GREEN/KEEGAN URINE.. FECAL MGT TUBE IN PLACE FOR BROWN STOOL..TEMP REMAINS 100.4 RECTAL.. POSITIONED ONTO LEFT.. O2 DECREASED TO 30% THIS AM AFTER O2 ON ABG 103.. PULSE OX INITAILLY MAINTAINED BUT THEN DROPPED TO 86% WITH GOOD WAVE FORM.. DESPITE CHANGES OF FINGERS, REPOSITIONING, SUCTIONING IT ONLY CAME UP TO 88%.WITH 100% O2 FOR 2 MIN PULSE OX CAME UP TO 95% BUT WITHIN 2 MIN OF RETURNING TO 30% SATS WERE AT 90%..FiO2 INCREASED TO 35%.. MAINTAINED 90% BUT SLOWLY CAME UP TO 94%...
[2019-08-25 11:29] LABS: ARTERIAL BLOOD GAS PH 7.42 (7.35-7.45)
--- NOTE | 2019-08-25 20:04 | NUR ---
TEMP 101.3 TO 101.5. MEDICATED WITH TYLENOL ORDERED. REPOSITIONED AND PILLOWS REMOVED TO ALLOW FOR PT COMFORT. NEW ART TUBING HUNG AND HEPARIN FLUSH BAG. OTHER THAN ELEVATED TEMP, VSS. ORAL CARE DONE. AFB SPUTUM SPECIMEN OBTAINED AND SENT ORDERED. TUBE FEEDINGS CONTINUE AT 50CC/HR. HOB ELEVATED.
--- NOTE | 2019-08-25 22:18 | NUR ---
TYLENOL EFFECTIVE...TEMP DOWN TO 100.6.
[2019-08-26] VITALS (24 sets, daily range): BP systolic 85–158; BP diastolic 60–92
--- NOTE | 2019-08-26 01:22 | NUR ---
COMPLETE BATH AND BED LINEN CHANGE DONE. PT AWAKE, LOOKS AT ME. SQUEEZES MY HAND VERY HARD WHEN I EXPLAINED PT CONDITION/PLAN OF CARE.
--- NOTE | 2019-08-26 04:37 | NUR ---
ZEMURON GIVEN AT 0430 FOR PT AGITATION, MOVING, PULLING UP AT RESTRAINTS AND LIFTING AND THRASHING HEAD SIDE TO SIDE....EFFECTIVE.
[2019-08-26 05:16] LABS: ABG BASE EXCESS 5.9 mmol/L (-2.0-2.0); ARTERIAL BLOOD GAS PH 7.354 (7.35-7.45)
[2019-08-26 05:54] LABS: ALKALINE PHOSPHATASE 60 U/L (45-117); BUN 37 mg/dl (7-24); CHLORIDE 117 mmol/L (98-107); CREATININE 0.79 mg/dL (0.70-1.30); PHOSPHOROUS 2.9 mg/dL (2.5-4.9); POTASSIUM 3.9 mmol/L (3.5-5.1); SGOT/AST 72 IU/L (3-35); SGPT/ALT 97 U/L (12-78); SODIUM 149 mmol/L (136-145); TOTAL PROTEIN 6.3 gm/dL (6.4-8.2); TRIGLYCERIDES 362 mg/dl (<150)
[2019-08-26 06:11] LABS: HEMATOCRIT 41.7 % (42.0-52.0); MEAN CELL VOLUME 95.6 fl (80.0-94.0); MEAN CORPUSCULAR HGB 30.3 pg (27.0-31.0); MEAN CORPUSCULAR HGB CONC 31.7 g/dl (33.0-37.0); MEAN PLATELET VOLUME 10.4 fl (9.6-12.3); PLATELET COUNT AUTOMATED 264 10*3/uL (130-400); RED BLOOD COUNT 4.36 10*6/uL (4.50-5.90); RED CELL DISTRI WIDTH 13.2 % (0-14.5); WHITE BLOOD COUNT 9.9 10*3/uL (4.8-10.8)
--- NOTE | 2019-08-26 06:20 | NUR ---
AFB SPUTUM COLLECTED AND SENT ORDERED. PT AWAKE AND LOOKING AT ME AND HIS SURROUNDINGS. FREQUENT EXPLANATIONS CONTINUE. VSS.
--- NOTE | 2019-08-26 07:00 | NUR ---
Shift chart check completed.
[2019-08-26 07:10] LABS: PLATELET SUFFICIENCY NORMAL (NORMAL); TOTAL CELLS COUNTED 100 #CELLS; TOXIC GRANULATION SLIGHT
--- NOTE | 2019-08-26 08:00 | NUR ---
AM ASSESSMENT DONE - ETT SECURE W/ 26 @ OUTER LIP...OGT PLACEMENT CONFIRMED W/ AIR BOLUS THEN IRRIGATED WITH FREE WATER & FEEDINGS INFUSING .. RIJ-MLC SECURE W/ ALL PORTS PATENT. DIPRIVAN INFUSING AT 35mcg & FENTANYL @ 35mcg...LEFT ARM ARTLINE SECURE & PATENT. ART ZERO'D & CALIBRATED W/ GOOD HEMODYNAIC RESPONSE..HARDING PATENT FOR CLOUDY URINE, RECTAL HARDING INTACT WITH BROWN LOOSE STOOL...
--- NOTE | 2019-08-26 11:00 | NUR ---
DR SHERWOOD HERE AND CASES REVIED & PATIENT SEEN. ID CALLED IN AND CASES DISCUSSED. MEDS ADJUSTED PER INFECTIOUS DISEASE.. FREE WATER INCREASED TO ASSIST WITH NA LEVEL...DR HERRERA ROUNDED ALSO
[2019-08-26 11:42] LABS: ABG BASE EXCESS 5.1 mmol/L (-2.0-2.0); ARTERIAL BLOOD GAS PH 7.42 (7.35-7.45)
[2019-08-26 12:05] LABS: ACID FAST SPEC PROCESSING Concentration (.)
--- NOTE | 2019-08-26 12:55 | NUR ---
HALDOL GIVEN FOR RESTLESSNESS. RIJ DRESSING CHANGED. GOOD OUTPUT FROM LASIX..
--- NOTE | 2019-08-26 14:00 | NUR ---
CALMER BUT STILL RESTLESS AT TIMES
--- NOTE | 2019-08-26 16:57 | NUR ---
HALDOL GIVEN FOR RESTLESSNESS AFTER TURNING
--- NOTE | 2019-08-26 19:26 | NUR ---
DR MACDONALD CALLED IN AND VITALS REVIEWED...REQUESTED TO STOP HALDOL & DR SHERWOOD CALLED AND HE APPROVED. CONTINUE FENTANYL & DIPIRIVAN FOR SEDATION
--- NOTE | 2019-08-26 20:00 | NUR ---
PT RESTING IN BED AWAKE AND AGITATED. ENDOTUBE PATENT, TIES SECURE. VENT SETTINGS VERIFIED AND FUNCTIONING WITHOUT DIFFICULTY. OGT PATENT, PLACEMENT VERUIFIED VIA AIR BOLUS AND TF AKIL WELL. RIGHT IJ MLC PATENT, DRESSING DRY AND INTACT. LEFT ART LINE PATENT, DRESSING DRY AND INTACT. HARDING PATENT FOR CLEAR KEEGAN URINE. DIPRIVAN AND FENTANYL INFUSING ORDERED FOR SEDATION. MEDICATED WITH TYLENOL PER PRN ORDER FOR T 101.7(R). ISOLATION PRECAUTIONS MAINTAINED.
--- NOTE | 2019-08-26 23:00 | NUR ---
DR HOLT NOTIFIED OF T 101.3 AND HR 135. ORDER TO GIVE TYLENOL NOW AND RECHECK IN 1 HOUR.
--- NOTE | 2019-08-26 23:30 | NUR ---
TRI GIVEN FOR T 101.3(R).
[2019-08-27] VITALS (25 sets, daily range): BP systolic 91–160; BP diastolic 57–88
--- NOTE | 2019-08-27 05:15 | NUR ---
MEDICATED WITH TYLENOL PER PRN ORDER FOR T 101.1(R).
[2019-08-27 05:47] LABS: ALKALINE PHOSPHATASE 57 U/L (45-117); BUN 35 mg/dl (7-24); CHLORIDE 117 mmol/L (98-107); CREATININE 0.98 mg/dL (0.70-1.30); PHOSPHOROUS 2.8 mg/dL (2.5-4.9); POTASSIUM 4.3 mmol/L (3.5-5.1); SGOT/AST 57 IU/L (3-35); SGPT/ALT 86 U/L (12-78); SODIUM 151 mmol/L (136-145); TOTAL PROTEIN 6.7 gm/dL (6.4-8.2); TRIGLYCERIDES 294 mg/dl (<150)
[2019-08-27 05:53] LABS: ABG BASE EXCESS 4.9 mmol/L (-2.0-2.0); ARTERIAL BLOOD GAS PH 7.424 (7.35-7.45)
[2019-08-27 05:59] LABS: BASO # 0.1 10*3/uL (0.0-0.1); EOS # 0.2 10*3/uL (0.0-0.4); EOS % 1.6 % (1.0-4.0); HEMATOCRIT 42.8 % (42.0-52.0); LYMPH # 1.4 10*3/uL (1.3-4.4); MEAN CELL VOLUME 95.3 fl (80.0-94.0); MEAN CORPUSCULAR HGB 29.8 pg (27.0-31.0); MEAN CORPUSCULAR HGB CONC 31.3 g/dl (33.0-37.0); MEAN PLATELET VOLUME 11.2 fl (9.6-12.3); MONO % 9.6 % (3.0-9.0); NEUT # 7.5 10*3/uL (2.3-7.9); NEUT % 72.2 % (47.0-73.0); PLATELET COUNT AUTOMATED 243 10*3/uL (130-400); RED BLOOD COUNT 4.49 10*6/uL (4.50-5.90); RED CELL DISTRI WIDTH 13.5 % (0-14.5); WHITE BLOOD COUNT 10.3 10*3/uL (4.8-10.8)
--- NOTE | 2019-08-27 07:09 | NUR ---
ETT REMAINS INPLACE AND SECURED 26CM @ LIP PLATEAU PRESSURE - 16 DRIVING PRESSURE - 2 NO RES DISTRESS OR SOB NOTED AT THIS TIME.
[2019-08-27 09:04] LABS: ACID FAST SPEC PROCESSING Concentration (.)
[2019-08-27 09:04] LABS: ACID FAST SPEC PROCESSING Concentration (.)
--- NOTE | 2019-08-27 10:05 | NUR ---
DR HERRERA HERE - DISCUSSED LABS - ORDERS RECEIVED
--- NOTE | 2019-08-27 11:45 | NUR ---
PT AGAIN INCONT LIQ STOOL AROUND FECAL CONTAINMENT SYSTEM...
[2019-08-27 12:06] LABS: ABG BASE EXCESS 4.8 mmol/L (-2.0-2.0); ARTERIAL BLOOD GAS PH 7.432 (7.35-7.45)
--- NOTE | 2019-08-27 13:20 | NUR ---
DIPRIVAN AT 35mcg/18.7cc & FENTANYL AT 8mcg/2cc VIA PATENT RIJ-MLC. PATIENT EASILY AGGITATED.. EXPLAINATIONS GIVEN AND SOME REASSUANCE PROVIDED BUT PAT STILL NOT FULLY FOLLOWING COMMANDS & CONTINUES TO INTERMITTENTLY PULL AT RESTRAINTS...HARDING PATENT FOR STRAW URINE... OGT WITH FEEDING AT 50cc/hr AFTER MULTIPLE LOOSE STOOLS...TEMP REMAIN <100R...
--- NOTE | 2019-08-27 13:26 | NUR ---
ETT REMAINS 26 @ THE LIP. INPLACE AND SECURED. PLATEAU PRESSURE - 18 DRIVING PRESSURE - 4 NO RES DISTRESS OR SOB NOTED AT THIS TIME.
--- NOTE | 2019-08-27 16:05 | NUR ---
ETT REMAINS INPLACE AND SECURED 26 @ THE LIP. PLATEAU PRESSURE - 18 DRIVING PRESSURE - 6 DOWN CUFF VOLUME TEST - 420ML NO RES DISTRESS OR SOB NOTED AT THIS TIME.
--- NOTE | 2019-08-27 18:36 | NUR ---
RECTAL HARDING REMOVED AFTER LEAKED AGAIN AROUND IT...DIPRIVAN DRIP @ 35mcg & FENTANYL DRIP AT 8mcg...OGT SECURE WITH FEEDING INFUSING
--- NOTE | 2019-08-27 18:49 | NUR ---
TYLENOL GIVEN FOR FEVER 101.1 R
--- NOTE | 2019-08-27 20:37 | NUR ---
CHART CHECK COMPLETE.
--- NOTE | 2019-08-27 21:09 | NUR ---
FENTANYL HAS BEEN INCREASED TO 12MCG/HR HE IS WIDE AWAKE AND AGITATED.
[2019-08-28] VITALS (25 sets, daily range): BP systolic 82–157; BP diastolic 51–86
--- NOTE | 2019-08-28 01:34 | NUR ---
APPEARS COMFORTABLE. HR 90'S. BODY RELAXED.
[2019-08-28 04:21] LABS: BASO # 0.1 10*3/uL (0.0-0.1); BASO % 1.1 % (0.0-1.0); EOS # 0.2 10*3/uL (0.0-0.4); EOS % 2.1 % (1.0-4.0); HEMATOCRIT 37.1 % (42.0-52.0); LYMPH # 1.6 10*3/uL (1.3-4.4); LYMPH % 17.6 % (27.0-41.0); MEAN CELL VOLUME 95.1 fl (80.0-94.0); MEAN CORPUSCULAR HGB 30.5 pg (27.0-31.0); MEAN CORPUSCULAR HGB CONC 32.1 g/dl (33.0-37.0); MEAN PLATELET VOLUME 10.9 fl (9.6-12.3); MONO # 0.7 10*3/uL (0.1-1.0); MONO % 7.8 % (3.0-9.0); NEUT # 6.3 10*3/uL (2.3-7.9); NEUT % 70.2 % (47.0-73.0); RED CELL DISTRI WIDTH 13.7 % (0-14.5)
[2019-08-28 04:32] LABS: ALBUMIN 2.6 gm/dl (3.1-4.5); ALKALINE PHOSPHATASE 54 U/L (45-117); BUN 36 mg/dl (7-24); CHLORIDE 119 mmol/L (98-107); CREATININE 0.81 mg/dL (0.70-1.30); PHOSPHOROUS 2.7 mg/dL (2.5-4.9); PLATELET COUNT AUTOMATED 163 10*3/uL (130-400); POTASSIUM 3.5 mmol/L (3.5-5.1); SGOT/AST 48 IU/L (3-35); SGPT/ALT 71 U/L (12-78); SODIUM 150 mmol/L (136-145); TOTAL PROTEIN 5.6 gm/dL (6.4-8.2); TRIGLYCERIDES 227 mg/dl (<150)
--- NOTE | 2019-08-28 05:11 | NUR ---
PT WAS GIVEN ROCURONIUM AT 0500 FOR AGITATION, SCOOTING BACK TO BOTTOM OF BED, THRASHING HEAD SIDE TO SIDE AND PULLING UP AT RESTRAINTS. IT WAS EFFECTIVE.
[2019-08-28 05:39] LABS: ABG BASE EXCESS 4.1 mmol/L (-2.0-2.0); ARTERIAL BLOOD GAS PH 7.412 (7.35-7.45)
[2019-08-28 09:26] LABS: ABG BASE EXCESS 3.5 mmol/L (-2.0-2.0); ARTERIAL BLOOD GAS PH 7.448 (7.35-7.45)
--- NOTE | 2019-08-28 09:34 | NUR ---
ABG DRAWN VIA ARTLINE S/P PEEP DECREASED TO 10..DIPRIVAN INCREASED TO 50mcg AFTER CONTINUED AGGITATION & PULLING AT LINES
--- NOTE | 2019-08-28 12:24 | NUR ---
RESP THERAPY HERE AND PULLED ETT BACK 1.5CM - 24 AT INNER LIP (WAS 26 AT OUTER LIP...ALL LINES PATENT & DIPRIVAN DECREASED TO 40mcg...MEAGHAN PATENT FOR DK STRAW CLOUDY W/ SEDIMENT - IV LASIX & PO POTASSIUM GIVEN...
--- NOTE | 2019-08-28 12:26 | NUR ---
08:35 PEEP DECREASED TO 10 PREVIOUS AB.412/46/82
--- NOTE | 2019-08-28 12:28 | NUR ---
11:15 ETT ADVANCED 1.[address] SHERWOOD. ADVANCED TO 24 AT THE TEETH LINE. BBSs EQUAL AND CLEAR. ASSISTED AND VERIFIED WITH THE RN. PT SUCTIONED FOR SMALL CREAM SECRETIONS.
[2019-08-28 16:21] LABS: BUN 33 mg/dl (7-24); CHLORIDE 116 mmol/L (98-107); CREATININE 0.78 mg/dL (0.70-1.30); POTASSIUM 3.7 mmol/L (3.5-5.1); SODIUM 148 mmol/L (136-145)
--- NOTE | 2019-08-28 18:25 | NUR ---
PATIENT INCONT AGAIN OF LIQUID STOOL..MTEMP RUNNIGN LOW - PT FEELS COLD TO TOUCH AND BLANKETS APPLIED - TRYING TO FIND ANOTHER PROBE TO SEE IF ANY CHANGES
--- NOTE | 2019-08-28 18:45 | NUR ---
HALDOL EFFECTIVE AND WAS ABLE TO DECREASE DIPRIVAN & FENTANYL SINCE STARTING IT
--- NOTE | 2019-08-28 20:15 | NUR ---
ART LINE DRESSING, NEW PRESSURE BAG AND TUBING HUNG....ART LINE ZEROED WITH GOOD HEMODYNAMIC RESPONSE. HALDOL EFFECTIVE FOR SEDATION AT THIS TIME. VSS. REPOSITIONED. HOB ELEVATED.
[2019-08-29] VITALS (24 sets, daily range): BP systolic 115–165; BP diastolic 65–92
--- NOTE | 2019-08-29 00:01 | NUR ---
PLATEAU PRESSURE:15,DRIVE:10, P/F RATIO:360
--- NOTE | 2019-08-29 01:13 | NUR ---
PT MOVING SIDE WAYS IN BED AND HR 110'S. REPOSITIONED.
--- NOTE | 2019-08-29 02:30 | NUR ---
PT HAD BEEN TRYING TO GET OOB. SIDEWAYS WITH ATTEMPTING TO THROW FEET OVER THE EDGE. PULLING UP AT RESTRAINTS. PT LOOKS AT ME AND SHAKES HEAD IN YES/NO FASHION. HALDOL WAS GIVEN AT 0200. APPEARS TO BE EFFECTIVE...PT DOZING AT INTERVALS, BODY MORE RELAXED.
[2019-08-29 04:59] LABS: ABG BASE EXCESS 1.5 mmol/L (-2.0-2.0); ARTERIAL BLOOD GAS PH 7.438 (7.35-7.45)
--- NOTE | 2019-08-29 05:11 | NUR ---
PT, AGAIN, WAS SIDE WAYS IN BED. I STRAIGHTENED HIM UP AND INSTRUCTED HIM ON HOW TO ASSIST. HE WAS COOPERATIVE AND MAINTAINED VERY FREQUENT CONTACT.
--- NOTE | 2019-08-29 05:31 | NUR ---
HEPARIN GTT OFF FOR PTT 96.5.
[2019-08-29 05:39] LABS: ALBUMIN 2.8 gm/dl (3.1-4.5); BUN 33 mg/dl (7-24); CHLORIDE 119 mmol/L (98-107); CREATININE 0.76 mg/dL (0.70-1.30); PHOSPHOROUS 3.3 mg/dL (2.5-4.9); POTASSIUM 4.1 mmol/L (3.5-5.1); SGOT/AST 52 IU/L (3-35); SGPT/ALT 71 U/L (12-78); SODIUM 148 mmol/L (136-145); TOTAL PROTEIN 5.8 gm/dL (6.4-8.2); TRIGLYCERIDES 205 mg/dl (<150)
[2019-08-29 05:40] LABS: ALKALINE PHOSPHATASE 50 U/L (45-117)
[2019-08-29 06:11] LABS: BASO # 0.1 10*3/uL (0.0-0.1); BASO % 1.2 % (0.0-1.0); EOS # 0.1 10*3/uL (0.0-0.4); EOS % 2.1 % (1.0-4.0); HEMATOCRIT 37.9 % (42.0-52.0); LYMPH # 1.5 10*3/uL (1.3-4.4); LYMPH % 21.6 % (27.0-41.0); MEAN CELL VOLUME 94.3 fl (80.0-94.0); MEAN CORPUSCULAR HGB 29.9 pg (27.0-31.0); MEAN CORPUSCULAR HGB CONC 31.7 g/dl (33.0-37.0); MEAN PLATELET VOLUME 12.6 fl (9.6-12.3); MONO # 0.5 10*3/uL (0.1-1.0); MONO % 7.6 % (3.0-9.0); NEUT # 4.5 10*3/uL (2.3-7.9); NEUT % 66.5 % (47.0-73.0); PLATELET COUNT AUTOMATED 143 10*3/uL (130-400); RED BLOOD COUNT 4.02 10*6/uL (4.50-5.90); RED CELL DISTRI WIDTH 13.5 % (0-14.5); WHITE BLOOD COUNT 6.8 10*3/uL (4.8-10.8)
--- NOTE | 2019-08-29 06:36 | NUR ---
PT AGAIN, ANXIOUS AND SCOOTING SELF DOWN INTO THE BED. HE ALSO HAD A BROWN LIQUID STOOL THAT SOAKED INTO PADDING. UNDERPADS CHANGED AND PT ASSISTED TO POSITION OF COMFORT. HE COOPERATES WITH ME WHEN I AM IN THE ROOM. HALDOL GIVEN TO PROMOTE RELAXATION.
--- NOTE | 2019-08-29 08:00 | NUR ---
RESTING IN BED. SEDATED ON VENT. DIPRIVAN GTT INFUSING AT 30 SAVANNA'S (16CC/HR) AND FENTANYL GTT INFUSING AT 8 SAVANNA'S (2CC/HR) VIA RIJ MLC. ART LINE INTACT TO LEFT RADIAL. HARDING DRAINING CLEAR YELLOW URINE. HARDING DRAINING CLEAR YELLOW URINE. NO EDEMA NOTED. ALERT AND FOLLOWING COMMANDS. NODS HEAD YES AND NO
--- NOTE | 2019-08-29 10:00 | NUR ---
DR. SHERWOOD HERE TO SEE PATIENT. LABS, CXR, AND PATIENT'S CONDITION TOLD TO HIM.
[2019-08-29 12:27] LABS: ABG BASE EXCESS 0.1 mmol/L (-2.0-2.0); ARTERIAL BLOOD GAS PH 7.437 (7.35-7.45)
--- NOTE | 2019-08-29 14:10 | NUR ---
MEDICATED WITH HALDOL ORDERED FOR RESTLESSNESS
--- NOTE | 2019-08-29 14:15 | NUR ---
DIPRIVAN GTT TITRATED DOWN TO 20 SAVANNA'S.
[2019-08-29 16:08] LABS: TB1 Ag VALUE 0.03 IU/mL (.)
--- NOTE | 2019-08-29 16:15 | NUR ---
MEDICATED WITH HALDOL 5MG IV FOR RESTLESSNESS AND CONSTANT MOTION.
[2019-08-29 17:21] LABS: ABG BASE EXCESS 1.6 mmol/L (-2.0-2.0); ARTERIAL BLOOD GAS PH 7.466 (7.35-7.45)
--- NOTE | 2019-08-29 17:50 | NUR ---
PT PLACED ON CPAP 02/[address] SHERWOOD FOR 2 HRS THEN DO AN ABG. PLACE PT BACK ON A/C TONIGHT. CONTINUE CPAP IN MORNING.
--- NOTE | 2019-08-29 20:00 | NUR ---
PT RESTING IN BED ALERT, NODDING HEAD WHEN ASKED QUESTIONS. PT APPEARS TO BE VERY AGITATED. ENDOTUBE PATENT, TIES SECURE, VENT SETTINGS VERIFIED AND FUNCTIONING WITHOUT DIFFICULTY. RIGHT IJ MLC PATENT, DRESSING DRY AND INTACT. LEFT ART LINE PATENT, DRESSING DRY AND INTACT, FLUSHES WTIHOUT DIFFICULTY. OGT PATENT, PLACEMENT VERIFIED WITH AIR BOLUS AND TF AKIL WELL. HARDING PATENT FOR DARK KEEGAN URINE. IVF'S INFUSING ORDERED WITHOUT DIFFICULTY. NO S/S OF HYPO/HYPERGLYCEMIA NOTED. ISOLATION PRECAUTIONS MAINTAINED.
[2019-08-29 20:15] LABS: ABG BASE EXCESS 1.5 mmol/L (-2.0-2.0); ARTERIAL BLOOD GAS PH 7.451 (7.35-7.45)
--- NOTE | 2019-08-29 21:30 | NUR ---
MEDICATED WITH HALDOL PER PRN ORDER FOR AGIATION.
[2019-08-30] VITALS (24 sets, daily range): BP systolic 90–154; BP diastolic 55–83
--- NOTE | 2019-08-30 | NUR ---
MEDICATED WITH HALDOL PER PRN ORDER FOR AGITATION.
[2019-08-30 05:33] LABS: ABG BASE EXCESS 1.5 mmol/L (-2.0-2.0); ARTERIAL BLOOD GAS PH 7.446 (7.35-7.45)
--- NOTE | 2019-08-30 06:00 | NUR ---
MEDICATED WITH HALDOL PER PRN ORDER FOR AGITATION.
[2019-08-30 06:03] LABS: ALBUMIN 2.9 gm/dl (3.1-4.5); ALKALINE PHOSPHATASE 53 U/L (45-117); BUN 25 mg/dl (7-24); CHLORIDE 113 mmol/L (98-107); CREATININE 0.77 mg/dL (0.70-1.30); PHOSPHOROUS 3.6 mg/dL (2.5-4.9); POTASSIUM 3.6 mmol/L (3.5-5.1); SGOT/AST 108 IU/L (3-35); SGPT/ALT 156 U/L (12-78); SODIUM 144 mmol/L (136-145); TRIGLYCERIDES 257 mg/dl (<150)
[2019-08-30 06:07] LABS: PREALBUMIN 35 mg/dl (20-40); TOTAL PROTEIN 5.8 gm/dL (6.4-8.2)
[2019-08-30 06:20] LABS: BASO # 0.1 10*3/uL (0.0-0.1); BASO % 1.7 % (0.0-1.0); EOS # 0.2 10*3/uL (0.0-0.4); EOS % 2.2 % (1.0-4.0); HEMATOCRIT 36.3 % (42.0-52.0); LYMPH # 1.8 10*3/uL (1.3-4.4); LYMPH % 26.2 % (27.0-41.0); MEAN CELL VOLUME 91.4 fl (80.0-94.0); MEAN CORPUSCULAR HGB CONC 32.8 g/dl (33.0-37.0); MEAN PLATELET VOLUME 12.5 fl (9.6-12.3); MONO # 0.5 10*3/uL (0.1-1.0); MONO % 7.9 % (3.0-9.0); NEUT # 4.2 10*3/uL (2.3-7.9); NEUT % 61.1 % (47.0-73.0); PLATELET COUNT AUTOMATED 161 10*3/uL (130-400); RED BLOOD COUNT 3.97 10*6/uL (4.50-5.90); RED CELL DISTRI WIDTH 13.2 % (0-14.5); WHITE BLOOD COUNT 6.9 10*3/uL (4.8-10.8)
--- NOTE | 2019-08-30 06:50 | NUR ---
HALDOL HAS BEEN EFFECTIVE.
--- NOTE | 2019-08-30 07:20 | NUR ---
PT PLACED ON CPAP 02/18. PT TOLERATING WELL. PTS VT 1013, HR 108, SPO2 94%. WILL DO ABG IN 2 HRS.
--- NOTE | 2019-08-30 08:00 | NUR ---
Resting in bed. Awake and alert. Nods head appropriaetly. Pulse ox 92% on vent C-pap mode. Lungs clear bilaterally. No edema noted. Ogt intact and infsuing osmolite 60cc/hr with free water 200cc given q4h. Art line intact to left wrist with good waveform. Rij MLC with dressing changed and dry and intact. Gallardo draining clear yellow urine. Haldol 5mg iv given as ordered for restlessness. Moving in bed
[2019-08-30 09:17] LABS: ABG BASE EXCESS 0.5 mmol/L (-2.0-2.0); ARTERIAL BLOOD GAS PH 7.459 (7.35-7.45)
--- NOTE | 2019-08-30 10:37 | NUR ---
PT CPAP CHANGED TO 15/[address] SHERWOOD. SPO2 95%, HR 113, ABGS IN 4 HRS IF SPO2 MAINTAINS.
[2019-08-30 13:58] LABS: ABG BASE EXCESS 0.7 mmol/L (-2.0-2.0); ARTERIAL BLOOD GAS PH 7.473 (7.35-7.45)
[2019-08-31] VITALS (27 sets, daily range): BP systolic 96–158; BP diastolic 55–86
--- NOTE | 2019-08-31 01:13 | NUR ---
RN IN TO REPOSITION PATIENT, UPON INSPECTION PATIENT HAS MLC PULLED OUT APPROXIMATELY 5INCHES. RN REMOVED D/T BEING OUT OF PLACE. NEW IV SITE INSERTED INTO THE RIGHT ANTECUBITAL. MULTIPLE OTHER SITE WERE ATTEMPTED BUT NONE WERE SUCCESSFUL. FENTANYL DIPROVAN AND HEPARIN ALL INFUSING THROUGH THE RIGHT AC IV. DR BLAKELY TO BE MADE AWARE.
[2019-08-31 05:45] LABS: ALBUMIN 2.9 gm/dl (3.1-4.5); ALKALINE PHOSPHATASE 65 U/L (45-117); BUN 23 mg/dl (7-24); CHLORIDE 113 mmol/L (98-107); CREATININE 0.72 mg/dL (0.70-1.30); PHOSPHOROUS 2.6 mg/dL (2.5-4.9); SGOT/AST 166 IU/L (3-35); SGPT/ALT 234 U/L (12-78); SODIUM 142 mmol/L (136-145); TOTAL PROTEIN 6.3 gm/dL (6.4-8.2); TRIGLYCERIDES 227 mg/dl (<150)
[2019-08-31 05:59] LABS: ABG BASE EXCESS -0.1 mmol/L (-2.0-2.0); ARTERIAL BLOOD GAS PH 7.437 (7.35-7.45)
[2019-08-31 06:03] LABS: BASO # 0.1 10*3/uL (0.0-0.1); BASO % 1.7 % (0.0-1.0); EOS # 0.2 10*3/uL (0.0-0.4); EOS % 1.8 % (1.0-4.0); HEMATOCRIT 36.7 % (42.0-52.0); LYMPH # 1.6 10*3/uL (1.3-4.4); LYMPH % 18.3 % (27.0-41.0); MEAN CELL VOLUME 91.3 fl (80.0-94.0); MEAN CORPUSCULAR HGB 30.1 pg (27.0-31.0); MEAN PLATELET VOLUME 12.9 fl (9.6-12.3); MONO # 0.6 10*3/uL (0.1-1.0); MONO % 6.7 % (3.0-9.0); NEUT % 70.9 % (47.0-73.0); PLATELET COUNT AUTOMATED 177 10*3/uL (130-400); RED BLOOD COUNT 4.02 10*6/uL (4.50-5.90); RED CELL DISTRI WIDTH 13.3 % (0-14.5); WHITE BLOOD COUNT 8.5 10*3/uL (4.8-10.8)
--- NOTE | 2019-08-31 06:33 | NUR ---
Shift chart check completed.
--- NOTE | 2019-08-31 08:30 | NUR ---
AM ASSESSMENT DONE - #9 ETT SECURE AT LIP..PT PLACED ON CPAP AT 0730.. TOLERATING CPAP 15/8 25%FiO2 WELL WITH SATS IN THE MID 90'S..OGT PLACEMENT CONFIRMED WITH AIR BOLUS THEN IRRIGATED WITH FREE WATER PER ORDERS. FEEDING AT 60 CC/HR.. LEFT ART LINE SECURE & PATENT... DRESSING TO OLD RIJ-MLC SITE REMOVED/NO BLEEDING...RAN IV PATENT WITH GOOD BLOOD RETURN..INFUSING IS DIPRIVAN, FENTANYL & HEPARIN... DIPRIVAN RATE CUT IN HALF TO 5mcg/ FENTANYL CUT TO 4mcg / HEPARIN REMAINS AT 16UNITS/KG/HR... HARDING PATENT FOR LT KEEGAN URINE..HALDOL GIVEN FOR MILD AGGITATION...
[2019-08-31 09:35] LABS: ABG BASE EXCESS -0.2 mmol/L (-2.0-2.0); ARTERIAL BLOOD GAS PH 7.407 (7.35-7.45)
--- NOTE | 2019-08-31 12:00 | NUR ---
IV started right forearm with #22 protective cath after 1 attempts. Site prepped with Chloroprep. Sterile dressing applied. Patient tolerated procedure well. REPOSITONED.. INCONTINENT OF LARGE LOOSE STOOL....PT GOT UPSET WHEN ATTEMPTED TO PUT ON SCD, WHEN EXPLAINED HE INDICATED TOO HOT...WILL REATTEMPT AGAIN LATER..PATIENT ALSO REFUSED TO BE TURNED TO SIDE SHAKING HIS HEAD NO.. EXPLAINED IMPORTANCE BUT SHOOK HEAD NO..NODDED YES THAT HE MAY DO IT LATER.. ALESSIA MARSH
--- NOTE | 2019-08-31 16:00 | NUR ---
PATIENT DOZING PRIOR TO ASSESSMENT..PATIENT DECLINED TURN AGAIN - WEIGHT SHIFTED. HOB ELEVATED AT 35 DEGREES..ART .LINE PATENT..IVX2 PATENT..HARDING PATENT...SCD ACCEPTED
--- NOTE | 2019-08-31 17:22 | NUR ---
BILAT HEELS PINK & BLANCHABLE..SHAKLES W/ ZIP TIES TO BILAT ANKLES SECURED TO BED FRAME PER LONG TERM STAFF.. SHAKLES W/ ZIP TIE TO RT WRIST SECURED TO BED FRAME...NO SIGNS OF WOUNDS TO THESE SITES WITNESSED AT THIS TIME...GOOD PUTPUT FROM [facility] THIS AM..MEAGHAN HAS STRAW URINE..PATIENT WAS ON CPAP AND AFTER TURNING THE PATIENT THE VENTILATOR KICKED BACK TO AC MODE... RESP THERAPY CAME AND PLACED THE PATIENT BACK ON CPAP HE WAS ALERT & BREATHING FINE - SATS NEVER DROPPED BELOW 94%...
--- NOTE | 2019-08-31 18:18 | NUR ---
MORPHINE GIVEN FOR INCREASING RESTLESSNESS & CONSTANT SHIFTING..
--- NOTE | 2019-08-31 20:08 | NUR ---
PATIENT GIVEN HALDOL TO HELP RELAX WHILE WE BATHED HIM AQND TURNED HIM FOR COMFORT. PATIENT DID TOLERATE WELL FOLLOWS COMMANDS WITH NO PROBLEMS. PATIENT SUCTIONED FOR CLEAR SMALL AMOUNT. MOUTH CARE COMPLETE ALONG WITH BATH AND BED CHANGED. PATIENT DENIES ANY PAIN AT THIS TIME.
[2019-09-01] VITALS (21 sets, daily range): BP systolic 106–160; BP diastolic 63–87
[2019-09-01 05:43] LABS: ABG BASE EXCESS 1.3 mmol/L (-2.0-2.0); ARTERIAL BLOOD GAS PH 7.436 (7.35-7.45)
[2019-09-01 06:05] LABS: BASO # 0.1 10*3/uL (0.0-0.1); BASO % 1.7 % (0.0-1.0); EOS # 0.2 10*3/uL (0.0-0.4); EOS % 2.5 % (1.0-4.0); HEMATOCRIT 37.2 % (42.0-52.0); LYMPH # 1.5 10*3/uL (1.3-4.4); LYMPH % 17.4 % (27.0-41.0); MEAN CORPUSCULAR HGB 30.3 pg (27.0-31.0); MEAN CORPUSCULAR HGB CONC 33.3 g/dl (33.0-37.0); MEAN PLATELET VOLUME 12.5 fl (9.6-12.3); MONO # 0.7 10*3/uL (0.1-1.0); MONO % 8.4 % (3.0-9.0); NEUT # 5.9 10*3/uL (2.3-7.9); NEUT % 69.5 % (47.0-73.0); PLATELET COUNT AUTOMATED 188 10*3/uL (130-400); RED BLOOD COUNT 4.09 10*6/uL (4.50-5.90); RED CELL DISTRI WIDTH 13.7 % (0-14.5); WHITE BLOOD COUNT 8.5 10*3/uL (4.8-10.8)
[2019-09-01 06:29] LABS: ALKALINE PHOSPHATASE 65 U/L (45-117); BUN 26 mg/dl (7-24); CHLORIDE 110 mmol/L (98-107); CREATININE 0.75 mg/dL (0.70-1.30); PHOSPHOROUS 3.4 mg/dL (2.5-4.9); SGOT/AST 101 IU/L (3-35); SGPT/ALT 254 U/L (12-78); SODIUM 142 mmol/L (136-145); TOTAL PROTEIN 6.3 gm/dL (6.4-8.2)
[2019-09-01 06:32] LABS: POTASSIUM 3.9 mmol/L (3.5-5.1)
--- NOTE | 2019-09-01 08:30 | NUR ---
ASSESSMENT DONE.. PT AWAKE & FOLLOWS COMMANDS.. ETT SECURE W AT LIP..SUCTIONED FOR WHITE FOAMY SMALL AMOUNTS.. ARTLINE DRESSING, TUBING & FLUID CHANGED..OGT PLACEMENT CONFIRMED WITH AIR BOLSU THEN IRRIGATED WITH FREE WATER & THEN MEDS.. ABD SOFT, NONTENDER..INCON SM AMOUT STOOL, HARDING PATENT FOR STRAW URINE.. NO WOUNDS. ATTEMPTED TO PLACE SCD BUT PT REFUSED ..MOTIONED THAT HE IS HOT..FAN TURNED ON.
--- NOTE | 2019-09-01 09:43 | NUR ---
Shift chart check completed.
--- NOTE | 2019-09-01 13:15 | NUR ---
HALDOL GIVEN FOR RESTLESSNESS VENT CHANGES MADE... 1400 APPEARS TO BE DOZING VIA CAMERA & VSS..
--- NOTE | 2019-09-01 15:02 | NUR ---
PATIENT RESTLESS WITH JUMP IN HEART RATE AND PRESSURES/WAVEFORM ABNORMAL ON VENT IN NEW CPAP 02/18.. PATIENT HAD BEEN SUCTIONED WITHOUT GETTING MUCH OUT OF WHITE.. HME CHANGED BY RT TO SEE IF THAT WOULD HELP BUT NO IMPROVEMENT...PT PULLING AT RESTRAINTS AND LOOKING TO NURSE FOR HELP...REASSURANCE GIVEN AND VENT CHANGES MADE TO 04/20 WITH SOME IMP THEN BACK TO 15/.. WAVEFORMS BACK TO NORMAL, PATIENT STARTED TO RELAX AND WHEN ASKED HE SAID IT FELT BETTER..RT CALLING DR SHERWOOD...
--- NOTE | 2019-09-01 16:18 | NUR ---
1610 PATIENT HEART RATE AGAIN JUMPED TO 130, PT AWAKE & MILDLY RESTLESS.. ZOFRAN IN CASE STOMACH UPSET, MORPHINE FOR GEN DISCOMFORT/ELEVATED HR AND HALDOL FOR RESTLESSNESS/ELEVATED HEART RATE. RESP WAVEFORMS STARTING AGAIN TO CHANGE.. 1622 HR DOWN TO 112, RESP EASIER, MORE RELAXED..
--- NOTE | 2019-09-01 16:58 | NUR ---
PT WAS PLACED BACK ON CPAP OF 15/8 BECAUSE OF INCREASE IN HEART RATE AN PT WAS COMPLAINING HE COULDNT BREATHE. SPO2 93% HR 125. DR SHERWOOD AWARE AND DID NOT WANT ANY ABGS AT THIS TIME.
--- NOTE | 2019-09-01 18:07 | NUR ---
PATIENT CONTINUES TO REST AFTER MEDICATED
--- NOTE | 2019-09-01 20:00 | NUR ---
PATIENT VERY ANXIOUS AT THIS TIME PATIENT MOVING AROUND THE BED POINTING WHEN I ASKED IF HE COULD NOT BREATHE HE SHOOK HIS HEAD YES. I TRIED TO EXPLAIN THAT HIS OXYGEN WAS GOOD THAT HE NEEDED TO TRY AND RELAX PATIENT THEN GIVEN HALDOL. AND RESPIRATORY CAME IN AND CHANGE HME AND PATIENT O2 WENT TO 95% PATIENT WAS THEN TURNED SLIGHTY. PATIENT DENIES PAIN WHEN ASKED, AND STATES THAT HE DOES NOT NEED ANYTHING AT THIS TIME.
[2019-09-02] VITALS (23 sets, daily range): BP systolic 105–138; BP diastolic 55–80
[2019-09-02 05:12] LABS: ABG BASE EXCESS 1.5 mmol/L (-2.0-2.0); ARTERIAL BLOOD GAS PH 7.416 (7.35-7.45)
[2019-09-02 05:35] LABS: ALBUMIN 3.2 gm/dl (3.1-4.5); ALKALINE PHOSPHATASE 72 U/L (45-117); BUN 23 mg/dl (7-24); CHLORIDE 106 mmol/L (98-107); CREATININE 0.78 mg/dL (0.70-1.30); PHOSPHOROUS 3.2 mg/dL (2.5-4.9); POTASSIUM 4.2 mmol/L (3.5-5.1); SGOT/AST 72 IU/L (3-35); SGPT/ALT 218 U/L (12-78); SODIUM 139 mmol/L (136-145); TOTAL PROTEIN 6.8 gm/dL (6.4-8.2)
[2019-09-02 06:26] LABS: BASO # 0.1 10*3/uL (0.0-0.1); BASO % 1.4 % (0.0-1.0); EOS # 0.2 10*3/uL (0.0-0.4); HEMATOCRIT 38.6 % (42.0-52.0); LYMPH # 1.5 10*3/uL (1.3-4.4); LYMPH % 14.8 % (27.0-41.0); MEAN CELL VOLUME 91.3 fl (80.0-94.0); MEAN CORPUSCULAR HGB CONC 32.9 g/dl (33.0-37.0); MEAN PLATELET VOLUME 12.8 fl (9.6-12.3); MONO # 0.8 10*3/uL (0.1-1.0); MONO % 7.6 % (3.0-9.0); NEUT # 7.6 10*3/uL (2.3-7.9); NEUT % 73.8 % (47.0-73.0); PLATELET COUNT AUTOMATED 211 10*3/uL (130-400); RED BLOOD COUNT 4.23 10*6/uL (4.50-5.90); RED CELL DISTRI WIDTH 14.3 % (0-14.5); WHITE BLOOD COUNT 10.2 10*3/uL (4.8-10.8)
--- NOTE | 2019-09-02 11:36 | NUR ---
MORPHINE & HALDOL GIVEN FOR INCREASED RESTLESSNESS & MOVING EXTREMITIES A LOT..PER PT HE DOES HAVE A HISTORY OF PAIN WHEN ASKED ABOUT HOME MEDS...
--- NOTE | 2019-09-02 13:22 | NUR ---
RSTING QUIETLY - FAN ON PER PT REQUEST..HR REMAINS STABLE TODAY
--- NOTE | 2019-09-02 16:04 | NUR ---
14:15 PEEP DECREASED TO 5 AND PSV DECREASED TO [address] SHERWOOD. PT TOLERATING WELL. PT SLEEPING. RESPS REGULAR AND UNLABORED. ABG TO FOLLOW.
--- NOTE | 2019-09-02 16:08 | NUR ---
PATIENT TOLERATING CPAP 10/5 WELL.. FOLLOWING COMMANDS.. HEPARIN DRIP STOPPED. REPOSITIONED & BED MADE INTO CHAIR POSITION
--- NOTE | 2019-09-02 16:50 | NUR ---
PATIENT EXTUBATED BY RESP THERAPY TO NASAL CANNULA...PULSE OX 94%...
--- NOTE | 2019-09-02 17:30 | NUR ---
16:45 PT EXTUBATED WITHOUT INCIDENT PER DR SHERWOOD. PT SUCTIONED FOR SMALL CREAM SECRETIONS PRIOR TO EXTUBATION. PT PLACED ON 4 L NC WITH HUMIDITY. ORAL CARE COMPLETED. RESPS EASY AND UNLABORED. NO STRIDOR. PT ABLE TO VERBALIZE WITHOUT DIFFICULTY. BBSs CLEAR AND EQUAL. VENT ON S/B. VITAL SIGNS: HR 115 SPO2 97% RR 20-22.
[2019-09-02 18:32] LABS: ABG BASE EXCESS 2.6 mmol/L (-2.0-2.0); ARTERIAL BLOOD GAS PH 7.443 (7.35-7.45)
--- NOTE | 2019-09-02 19:17 | NUR ---
DR SHERWOOD CALLED WITH ABG RESULTS POST EXTUBATION...NO NEW ORDERS
--- NOTE | 2019-09-02 19:21 | NUR ---
PATIENT CO-OPERATIVE & PLEASANT - TOLERATING NC4L WELL EVEN WITH TURNING
[2019-09-03] VITALS: BP 129/69
[2019-09-03 04:00] VITALS: BP 98/70
[2019-09-03 06:12] LABS: BASO # 0.1 10*3/uL (0.0-0.1); BASO % 1.5 % (0.0-1.0); EOS # 0.2 10*3/uL (0.0-0.4); EOS % 2.7 % (1.0-4.0); HEMATOCRIT 34.7 % (42.0-52.0); LYMPH # 1.1 10*3/uL (1.3-4.4); LYMPH % 16.5 % (27.0-41.0); MEAN CELL VOLUME 88.7 fl (80.0-94.0); MEAN CORPUSCULAR HGB 30.4 pg (27.0-31.0); MEAN CORPUSCULAR HGB CONC 34.3 g/dl (33.0-37.0); MEAN PLATELET VOLUME 11.4 fl (9.6-12.3); MONO # 0.7 10*3/uL (0.1-1.0); MONO % 10.3 % (3.0-9.0); NEUT # 4.6 10*3/uL (2.3-7.9); NEUT % 68.6 % (47.0-73.0); PLATELET COUNT AUTOMATED 205 10*3/uL (130-400); RED BLOOD COUNT 3.91 10*6/uL (4.50-5.90); RED CELL DISTRI WIDTH 13.8 % (0-14.5); WHITE BLOOD COUNT 6.7 10*3/uL (4.8-10.8)
[2019-09-03 06:37] LABS: ALBUMIN 2.9 gm/dl (3.1-4.5); ALKALINE PHOSPHATASE 69 U/L (45-117); BUN 21 mg/dl (7-24); CHLORIDE 105 mmol/L (98-107); CREATININE 0.68 mg/dL (0.70-1.30); PHOSPHOROUS 3.3 mg/dL (2.5-4.9); POTASSIUM 4.1 mmol/L (3.5-5.1); SGOT/AST 38 IU/L (3-35); SGPT/ALT 167 U/L (12-78); SODIUM 139 mmol/L (136-145); TOTAL PROTEIN 6.3 gm/dL (6.4-8.2)
[2019-09-03 08:00] VITALS: BP 94/60
--- NOTE | 2019-09-03 08:00 | NUR ---
RESTING IN BED. DENIES ANY COMPLAINTS. COMPLETE BED AND BATH DONE. REMAINS ON 2L NASAL CANNULA. HARDING DRAINING CLEAR YELLOW URINE. NGT INTACT AND INFUSING OSMOLYTE AT 60CC/HR. PLACED UP INTO CHAIR WITH ASSIST TIMES TWO. TOLERATED FAIR.
[2019-09-03 08:44] LABS: ABG BASE EXCESS 2.3 mmol/L (-2.0-2.0); ARTERIAL BLOOD GAS PH 7.458 (7.35-7.45)
--- NOTE | 2019-09-03 11:30 | NUR ---
DR. SHERWOOD HERE
[2019-09-03 12:00] VITALS: BP 124/65
--- NOTE | 2019-09-03 12:15 | NUR ---
REMAINS UP IN CHAIR. GIVEN SIPS OF APPLE JUICE AND ICE CHIPS AND TOLERATED WELL. DR. SHERWOOD NOTIFIED AND WILL ORDER CLEAR LIQUIDS
--- NOTE | 2019-09-03 14:45 | NUR ---
PLACED BACK TO BED WITH ASSIST TIMES 2. TOLERATED WELL. ART LINE REMOVED AND PRESSURE HELD. CATHETER CLAMPED FOR BLADDER TRAINING.
[2019-09-03 16:00] VITALS: BP 125/71
--- NOTE | 2019-09-03 17:00 | NUR ---
INCONTINENT OF LARGE AMOUNT FORMED BM. TURNED AND REPOSITIONED BACK. SCD'S PLACED ON TO BILATERAL LOWER LEGS. REMAINS ON C-PAP AND TOLERATING WELL. ART LINE LEAKING AND DRY DRESSING PLACED OVER SITE. PULSE OX 97%. HEART RATE 80'S
[2019-09-03 20:00] VITALS: BP 114/76
--- NOTE | 2019-09-03 20:21 | NUR ---
PT. RESTING IN BED, ANSWERS ALL QUESTIONS APPROPRIATELY. HEP LOCK IN RA AND RW ASYMPT. LUNGS DIMINISHED BILAT, PULSE OX 94% ON RA. ABDOMEN SOFTLY DISTENDED AND NORMO. NO PERIPHERAL EDEMA NOTED. HARDING CATHETER DRAINING A CLEAR YELLOW/GREEN URINE. CLAMPED AT 1999 FOR BLADDER TRAINING UNTIL 2099. RESP. EASY AND REG, NO DISTRESS. BENJAMIN VILCHIS RN
[2019-09-04] VITALS: BP 105/81; BP 105/89
[2019-09-04 03:58] VITALS: BP 114/80
[2019-09-04 08:00] VITALS: BP 124/65; BP 146/98
[2019-09-04 08:01] LABS: BASO # 0.1 10*3/uL (0.0-0.1); BASO % 1.7 % (0.0-1.0); EOS # 0.2 10*3/uL (0.0-0.4); EOS % 2.7 % (1.0-4.0); HEMATOCRIT 35.7 % (42.0-52.0); LYMPH # 0.8 10*3/uL (1.3-4.4); LYMPH % 12.4 % (27.0-41.0); MEAN CELL VOLUME 89.7 fl (80.0-94.0); MEAN CORPUSCULAR HGB 30.7 pg (27.0-31.0); MEAN CORPUSCULAR HGB CONC 34.2 g/dl (33.0-37.0); MEAN PLATELET VOLUME 11.8 fl (9.6-12.3); MONO # 0.8 10*3/uL (0.1-1.0); MONO % 11.4 % (3.0-9.0); NEUT # 4.7 10*3/uL (2.3-7.9); NEUT % 71.3 % (47.0-73.0); PLATELET COUNT AUTOMATED 200 10*3/uL (130-400); RED BLOOD COUNT 3.98 10*6/uL (4.50-5.90); RED CELL DISTRI WIDTH 14.1 % (0-14.5); WHITE BLOOD COUNT 6.6 10*3/uL (4.8-10.8)
[2019-09-04 08:10] LABS: ALBUMIN 2.9 gm/dl (3.1-4.5); ALKALINE PHOSPHATASE 65 U/L (45-117); BUN 19 mg/dl (7-24); CHLORIDE 106 mmol/L (98-107); CREATININE 0.71 mg/dL (0.70-1.30); PHOSPHOROUS 2.7 mg/dL (2.5-4.9); POTASSIUM 3.9 mmol/L (3.5-5.1); SGOT/AST 26 IU/L (3-35); SGPT/ALT 118 U/L (12-78); SODIUM 136 mmol/L (136-145); TOTAL PROTEIN 6.3 gm/dL (6.4-8.2)
[2019-09-04 12:00] VITALS: BP 146/98
--- NOTE | 2019-09-04 13:00 | NUR ---
HARDING CATH D/C'D INTACT. PT GIVEN URINAL AND INSTRUCTED NOT TO STAND WITHOUT ASSISTANCE. PT VERBALIZED UNDERSTANDING.
--- NOTE | 2019-09-04 13:38 | NUR ---
DR MOTA IN TO SEE PT. UPDATED HER ON PT'S CONDITION AND PLAN OF CARE.
[2019-09-04 16:00] VITALS: BP 124/64
--- NOTE | 2019-09-04 17:22 | NUR ---
PT REMAINS SITTING IN THE CHAIR. DENEIS COMPLAINTS. NO ACUTE DISTRESS NOTED.
[2019-09-04 20:00] VITALS: BP 129/75
--- NOTE | 2019-09-04 21:07 | NUR ---
PT. UP IN CHAIR, ATTEMPTING TO STANT UP TO URINATE, GENERALIZED WEAKNESS, INSTRUCTED PATIENT TO CALL FOR ASSISTANCE. ASSISTED PT BACK TO BED WITH BED ALARM ON WELL 4 RAILS FOR PATIENT SAFETY. LUNGS DIMINISHED BILAT, PULSE OX 96-98% ON RA. ABDOMEN SOFT, NONDISTENDED AND NORMO. URINE KEEGAN. VOIDING IN URINAL WITH ASSIST. TRACE DEPENDENT EDEMA NOTED. SHACKLES REMAIN ON LOWER EXTREMITIES. BENJAMIN VILCHIS RN
[2019-09-05] VITALS: BP 118/84
[2019-09-05 04:00] VITALS: BP 125/84
[2019-09-05 06:08] LABS: BASO # 0.1 10*3/uL (0.0-0.1); BASO % 1.8 % (0.0-1.0); EOS # 0.2 10*3/uL (0.0-0.4); EOS % 3.8 % (1.0-4.0); HEMATOCRIT 34.9 % (42.0-52.0); MEAN CELL VOLUME 88.8 fl (80.0-94.0); MEAN CORPUSCULAR HGB 30.8 pg (27.0-31.0); MEAN CORPUSCULAR HGB CONC 34.7 g/dl (33.0-37.0); MEAN PLATELET VOLUME 11.1 fl (9.6-12.3); MONO # 0.7 10*3/uL (0.1-1.0); MONO % 10.9 % (3.0-9.0); NEUT % 66.3 % (47.0-73.0); PLATELET COUNT AUTOMATED 212 10*3/uL (130-400); RED BLOOD COUNT 3.93 10*6/uL (4.50-5.90); RED CELL DISTRI WIDTH 14.3 % (0-14.5); WHITE BLOOD COUNT 6.1 10*3/uL (4.8-10.8)
[2019-09-05 06:22] LABS: CHLORIDE 104 mmol/L (98-107); POTASSIUM 3.9 mmol/L (3.5-5.1); SODIUM 136 mmol/L (136-145)
[2019-09-05 06:30] LABS: ALBUMIN 2.8 gm/dl (3.1-4.5); ALKALINE PHOSPHATASE 63 U/L (45-117); BUN 18 mg/dl (7-24); SGOT/AST 24 IU/L (3-35); SGPT/ALT 95 U/L (12-78); TOTAL PROTEIN 6.1 gm/dL (6.4-8.2)
[2019-09-05 08:00] VITALS: BP 112/84; BP 125/84
--- NOTE | 2019-09-05 08:00 | NUR ---
PT AAOX3. RESP EASY. VSS. PT DENIES COMPLAINTS AT THIS TIME. NO ACUTE DISTRESS NOTED. WILL CONTINUE TO MONITOR PT.
--- NOTE | 2019-09-05 10:14 | NUR ---
PT UP TO CHAIR WITH 2 ASSIST. PT INSTRUCTED ON P.T. EXERCISIES TO DO WHILE IN THE CHAIR. PT VERBALIZED UNDERSTANDING.
--- NOTE | 2019-09-05 10:19 | NUR ---
Spoke to Abril, coordinator at the [facility], regarding patient's who may need therapy at a facility prior to returning to the retirement. She states they have contracted therapy who are currently on hold due to the COVID but will resume at some point in time. She states the inmates need to be evaluated by PT while here in the hospital and then can resume therapy when they return to the facility. Hospitalist nurse director notified.
--- NOTE | 2019-09-05 11:50 | NUR ---
Spoke to Dr[facility] Harrell regarding [facility] requesting [facility] have PT here and then have [facility] PT [facility] the [facility]. Spoke to Director of Rehab, Juan R, who is going to coordinate with the PT that goes to the [facility] to come to the 5th floor.
[2019-09-05 12:00] VITALS: BP 109/77
[2019-09-05 16:00] VITALS: BP 120/80
[2019-09-05 20:00] VITALS: BP 120/84
--- NOTE | 2019-09-05 20:25 | NUR ---
PT. RESTING IN BED, UP IN CHAIR PREVIOUSLY. HEP LOCK IN LA ASYMPT. LUNGS DIMINISHED BILAT, PULSE OX 95% ON RA. ABDOMEN SOFT ,NONDISTENDED AND NORMO. GENERALIZED WEAKNESS NOTED. PT. REMAINS COOPERATIVE WITH CARE. BODY ALARM ON FOR SAFETY. BENJAMIN VILCHIS RN
[2019-09-06] VITALS: BP 114/78
[2019-09-06 04:00] VITALS: BP 109/79
[2019-09-06 06:27] LABS: BASO # 0.1 10*3/uL (0.0-0.1); EOS # 0.3 10*3/uL (0.0-0.4); EOS % 5.4 % (1.0-4.0); HEMATOCRIT 33.7 % (42.0-52.0); LYMPH # 0.9 10*3/uL (1.3-4.4); LYMPH % 17.5 % (27.0-41.0); MEAN CELL VOLUME 88.7 fl (80.0-94.0); MEAN CORPUSCULAR HGB 30.3 pg (27.0-31.0); MEAN CORPUSCULAR HGB CONC 34.1 g/dl (33.0-37.0); MEAN PLATELET VOLUME 11.5 fl (9.6-12.3); MONO # 0.6 10*3/uL (0.1-1.0); MONO % 12.7 % (3.0-9.0); NEUT # 3.1 10*3/uL (2.3-7.9); PLATELET COUNT AUTOMATED 206 10*3/uL (130-400); RED CELL DISTRI WIDTH 14.2 % (0-14.5)
[2019-09-06 06:59] LABS: BUN 16 mg/dl (7-24); CREATININE 0.71 mg/dL (0.70-1.30)
[2019-09-06 07:52] VITALS: BP 113/61
--- NOTE | 2019-09-06 11:22 | NUR ---
Spoke to Dorene and Juan R from PT. Dorene is going to do the PT evals as soon as she is fit tested. Hospitalist nurse director notified for PT orders and Dr. Harrell notified of plan.
[2019-09-06 12:00] VITALS: BP 113/71
--- NOTE | 2019-09-06 12:50 | NUR ---
Occupational therapy orders received this date, 09/06/2019. Per discussion with Dorene from case management, patient does not need an occupational therapy evaluation at this time. Will hold on occupational therapy until further notice from case management or hospitalist. Thank you. Eri Simmons, OTR/L
--- NOTE | 2019-09-06 13:46 | NUR ---
Awake and alert this AM . Assisted up to chair. unsteady , took breakfast well, then returned to bed. DR. Salazar and Sharri in to evaulate. Orders recieved. Requested to call Dr. Greene for clothing , per julia: they will provide discharge clothes. Pt. aware.
--- NOTE | 2019-09-06 15:47 | NUR ---
PHYSICAL THERAPY Physical Therapy evaluation completed on 5E with full evaluation to follow. Low complexity PT evaluation per chart review and evaluation, [address]. Recommend physical therapy per plan of care and continued skilled PT services upon discharge. Thank you for this referral. Dorene Jara,PT,DPT
[2019-09-06 16:00] VITALS: BP 123/79
--- NOTE | 2019-09-06 18:30 | NUR ---
PATIENT UP IN CHAIR RESTING. ASSISTED PATIENT BACK TO BED. STEADY GAIT WITH 1 ASSIST. IV VANC INFUSING PER ORDER. POX 95-98% VIA RA. NO SOB NOTED. WILL CONTINUE TO MONITOR. VSS. CALL LIGHT WITHIN REACH.
--- NOTE | 2019-09-06 19:46 | NUR ---
24 HR chart check completed.
[2019-09-06 20:00] VITALS: BP 129/84
--- NOTE | 2019-09-06 20:00 | NUR ---
PATIENT RESTING IN BED. DENIES ANY COMPLAINTS. PULSE OX 96% ON RA. RESP EASY AND REGULAR. VSS. ASSESSMENT COMPLETE. CALL LIGHT WIHTIN REACH. WILL CONTINUE TO MONITOR.
--- NOTE | 2019-09-06 23:25 | NUR ---
PT RESTING IN BED. DENIES ANY COMPLAINTS. VSS. IV VANC INFUSING PER ORDER. CALL LIGHT IN REACH. WILL MONITOR.
[2019-09-07] VITALS: BP 123/81
[2019-09-07 06:38] LABS: BASO # 0.1 10*3/uL (0.0-0.1); BASO % 1.9 % (0.0-1.0); EOS # 0.3 10*3/uL (0.0-0.4); EOS % 7.3 % (1.0-4.0); HEMATOCRIT 31.3 % (42.0-52.0); LYMPH # 0.8 10*3/uL (1.3-4.4); LYMPH % 17.7 % (27.0-41.0); MEAN CELL VOLUME 87.2 fl (80.0-94.0); MEAN CORPUSCULAR HGB 30.1 pg (27.0-31.0); MEAN CORPUSCULAR HGB CONC 34.5 g/dl (33.0-37.0); MEAN PLATELET VOLUME 10.5 fl (9.6-12.3); MONO # 0.5 10*3/uL (0.1-1.0); MONO % 11.7 % (3.0-9.0); NEUT # 2.8 10*3/uL (2.3-7.9); NEUT % 61.2 % (47.0-73.0); PLATELET COUNT AUTOMATED 178 10*3/uL (130-400); RED BLOOD COUNT 3.59 10*6/uL (4.50-5.90); RED CELL DISTRI WIDTH 14.1 % (0-14.5); WHITE BLOOD COUNT 4.6 10*3/uL (4.8-10.8)
[2019-09-07 07:07] LABS: ALBUMIN 2.6 gm/dl (3.1-4.5); ALKALINE PHOSPHATASE 60 U/L (45-117); BUN 11 mg/dl (7-24); CHLORIDE 104 mmol/L (98-107); CREATININE 0.69 mg/dL (0.70-1.30); POTASSIUM 3.8 mmol/L (3.5-5.1); SGOT/AST 26 IU/L (3-35); SGPT/ALT 70 U/L (12-78); SODIUM 136 mmol/L (136-145); TOTAL PROTEIN 5.6 gm/dL (6.4-8.2)
[2019-09-07 08:00] VITALS: BP 122/69
--- NOTE | 2019-09-07 08:55 | NUR ---
Faxed PT eval to Abril, coordinator at [facility]
--- NOTE | 2019-09-07 10:34 | NUR ---
Spoke to Abril, medical coordinator at the [facility], regarding possibility of patient returning tomorrow to the [facility]. Briefly went over patient's progress during stay, pulse ox, and PT eval. Explained he is ambulating with a walker but will need skilled PT services upon return to the intermediate. She states she is going to have to pass some things by some other people and think outside the box to come up with alternative plans. She states she has to make some phone calls and will return CM call. Dr. Aguilar notified.
--- NOTE | 2019-09-07 10:34 | NUR ---
Spoke to Abril, medical coordinator [facility] the [facility], regarding possibility of patient returning today [facility] the [facility]. Briefly went over patient's progress during stay, pulse ox, and PT eval. Explained he is ambulating with a walker but will need skilled PT services upon return [facility]. She states she is going to have to pass some things by some other people and think outside the box to come up with alternative plans. She states she has to make some phone calls and will return CM call. Dr. Aguilar notified.
--- NOTE | 2019-09-07 10:46 | NUR ---
Received call from Dr. Tomas from [facility] regarding discharge planning. She would like the patient to stay here at the hospital until they are appropriate to return to the shelter. She would like them to continue to get therapy services here at the hospital. If we are unable to keep them here they would have to look at the possibility of [facility]. Dr. Aguilar, CNO, [employer], and Director of Rehab notified. Awaiting final decision.
--- NOTE | 2019-09-07 11:51 | NUR ---
Spoke to Director of Rehab regarding inpatient physical therapy continuing to work with patient and he is agreeable to have inpatient therapy continue. Spoke to business office, CNO, Director Clinical Applications, Director Inpatient Services, and Dr. Aguilar. Dr. Aguilar stated it was ok for therapy to work with the patients twice daily. Therapy notified.
[2019-09-07 12:00] VITALS: BP 118/88
--- NOTE | 2019-09-07 12:19 | NUR ---
IN TO ROOM. PATIENT AWAKE ALERT AND ORIENTED. SITTING UP IN CHAIR. PT STATES HE FEELS GREAT. DENIES PAIN, NO VOICED COMPLAINTS. RESPIRATIONS ARE EASY AND REGULAR ON ROOM AIR. PULSE OX 96%. PT STATES HE WOULD LIKE TO TAKE A SHOWER. CHAIR IN LOCKED POSITION AND CALL LIGHT WITHIN REACH. WILL CONTINUE TO MONITOR.
--- NOTE | 2019-09-07 15:01 | NUR ---
PHYSICAL THERAPY Patient supine in bed and agreeable to skilled PT services. Total treatment time: 31 minutes. Patient performed bed mobility to sit EOB with SBA, performed seated alternating marching 2x10, seated LAQ 2x10. Patient performed UE exercises, bilateral shoulder flexion 2x10 with verbal cueing to breathe in with elevation, breathe out with lowering to improve airflow. Patient performed bilateral shoulder abduction in seated position. No complaint of discomfort or shortness of breath noted. Patient on room air throughout treatment this date. Following seated exercises at EOB, patient transferred to recliner chair. Sit to stand from chair performed. Patient able to complete 1 set of 5 repetitions, 1 set of 10 repetitions, and 1 set of 5 repetitions, totaling 20 stands without use of UE for assistance. Patient requiring rest break between each session, but no complaint of SOB. Patient gait trained within room 20'x4 with FWW and SBA. Following standing rest break, patient gait trained without use of FWW, 10'x3, SBA. No LOB noted without use of FWW. Fatigue noted at end of session. Patient sitting in recliner chair at end of session. Comfortable, call gaitan within reach. Thank you. Dorene Jara,PT,DPT
[2019-09-07 16:00] VITALS: BP 119/80
[2019-09-07 20:00] VITALS: BP 97/64
--- NOTE | 2019-09-07 20:21 | NUR ---
24 HR chart check completed.
[2019-09-08] VITALS: BP 111/80
[2019-09-08 06:03] LABS: HEP B CORE AB, IGM Negative (Negative); HEPATITIS B SURFACE AG Negative (Negative); HEPATITIS C VIRUS ANTIBODY <0.1 s/co (0.0-0.9)
--- NOTE | 2019-09-08 07:30 | NUR ---
PT RESTING IN JARROD. VOICES NO CONCERNS AT THIS TIME. RESPS EASY AND NON LABORED. NO S/S OF DISTRESS NOTED. VSS. WHITE BOARD UPDATED. CALL LIGHT WITHIN REACH.
[2019-09-08 08:00] VITALS: BP 99/68
--- NOTE | 2019-09-08 09:54 | NUR ---
PHYSICAL THERAPY Physical therapy treatment session complete. Total time: 42 minutes. Patient sitting in recliner chair at start of session and agreeable to skilled PT services. Patient performed UE flexion x10, abduction x10 bilaterally with verbal cueing for increased breathing in/out with motions. Patient gait trained 20'x12 in room, totaling 240' with SBA. No LOB noted. Patient performed side stepping gait, 10'x4, totaling 40' with no LOB. Patient performed posterior walking with touching assistance to wall as needed 10'x2, 20' total, with no LOB. Stand by assist required for safety with all gait activities. Patient performed standing LE exercises at shelf including 2x10 of the following exercises: hip flexion, hip abduction, hip extension. All exercises performed bilaterally without difficulty. No SOB noted throughout PT session while on RA. After standing exercises, patient returned to seated position in chair. Patient performed sit to stand x20 without UE assist or need for rest break. No SOB noted. Patient gait trained to bathroom to wash hands prior to return to sitting in recliner chair at end of PT session. Patient comfortable, call gaitan within reach. Thank you
--- NOTE | 2019-09-08 10:44 | NUR ---
Spoke to Abril, medical coordinator at the [facility], regarding Dr. Harrell stating patient is doing well with physical therapy and the possibility of sending him back to the [facility] today. Discussed therapy notes and vital signs. She states she will check with Dr. Jernigan and return call.
--- NOTE | 2019-09-08 10:47 | NUR ---
Received call back from [facility]. Patient has the green light to return. Faxing notes from the last 2-3 days along with medications to Abril. Dr. Harrell notified.
--- NOTE | 2019-09-08 13:04 | NUR ---
Discharge instructions reviewed with patient/family. Patient receptive and verbalizes understanding. Follow-up care arranged. Written instructions given to patient/family. HISSOM,FREDERICK The Discharge Plan/Instructions have been completed.
[2019-09-09 22:02] LABS: TB1 Ag VALUE 0.15 IU/mL (.)
== END 2019-09-08 13:04 | DRG 870 ==
LOC: 5E 12:09 → 4NE 09-08 06:31
PROVIDERS: Family Medicine; Internal Medicine; Internal Medicine Critical Care Medicine; Neurological Surgery; Student in an Organized Health Care Education/Training Program; ADMIT Internal Medicine
PROC: 5A1955Z Respiratory Ventilation, Greater than 96 Consecutive Hours (ICD-10-PCS; principal; 2019-08-18)
PROC: 0BH17EZ Insertion of Endotracheal Airway into Trachea, Via Natural or Artificial Opening (ICD-10-PCS; principal; 2019-08-18)
PROC: 4A133B1 Monitoring of Arterial Pressure, Peripheral, Percutaneous Approach (ICD-10-PCS; 2019-08-19)
PROC: 02HV33Z Insertion of Infusion Device into Superior Vena Cava, Percutaneous Approach (ICD-10-PCS; 2019-08-19)
PROC: 03HY32Z Insertion of Monitoring Device into Upper Artery, Percutaneous Approach (ICD-10-PCS; 2019-08-19)
PROC: 4A133J1 Monitoring of Arterial Pulse, Peripheral, Percutaneous Approach (ICD-10-PCS; 2019-08-19)
DX: A41.89 Other specified sepsis (principal); U07.1 COVID-19; J96.01 Acute respiratory failure with hypoxia; J12.89 Other viral pneumonia; E87.1 Hypo-osmolality and hyponatremia; E46 Unspecified protein-calorie malnutrition; D68.69 Other thrombophilia; N17.9 Acute kidney failure, unspecified; G93.40 Encephalopathy, unspecified; E87.3 Alkalosis; E87.6 Hypokalemia; D64.9 Anemia, unspecified; R73.9 Hyperglycemia, unspecified; M19.90 Unspecified osteoarthritis, unspecified site; M62.81 Muscle weakness (generalized); E78.1 Pure hyperglyceridemia; E83.39 Other disorders of phosphorus metabolism; B95.7 Other staphylococcus as the cause of diseases classified elsewhere; E66.9 Obesity, unspecified; Z88.0 Allergy status to penicillin; Z79.899 Other long term (current) drug therapy; Z68.29 Body mass index [BMI] 29.0-29.9, adult